=== PATIENT | male | born 1955 | race Caucasian/White ===

== ENCOUNTER 2020-01-20 09:41 | Inpatient (IN) | payer MEDICARE ==
[2020-01-20] MEDS ORDERED: Sodium Chloride 0.9% 1000 ML 1,000 ML ONE (10:09)
[2020-01-20] MEDS ORDERED: Sodium Chloride 0.9% 1000 ML 1,000 ML IV STA (10:36)
[2020-01-20] MEDS ORDERED: ROCEPHIN 1 Gm-D5w 50 ml Bag** 1 G/50 ML IVPB IV STA (10:36)
[2020-01-20] MEDS ORDERED: Zithromax 500 MG/ 250 ML NaCl Premix 500 MG/250 ML IVPB IV STA (10:36)
--- NOTE | 2020-01-20 10:36 | ERPHSYRPT ---
- History of Present Illness Time Seen by Provider: 01/20/20 09:51 Source: patient Exam Limitations: no limitations (3) Patient Subjective Stated Complaint: fever, chills, flu like sx Triage Nursing Assessment: Pt to ED by EMS c/o flu like sx, fever, chills, body aches, vomiting, confusion, RLQ pain as well as buring with urination and dysuria x 2 days. 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 pt A&Ox3 on arrival, no SOB noted. lung sounds clear and euqal bilaterally, heart sounds clear, bowel sounds active. tender to palp on RLQ. also c/o chornic groin pain 07/19 since 2003. Physician History: For the past 4 days pt has had dysuria; for the past 2 days generalized aches, chills, fever, shortness of air and RLQ abdominal pain; today vomiting x1 and decreased oxygen saturation of 91% on room air(per ems). LBM was today & wnl. Allergies/Adverse Reactions: codeine Allergy (Unknown, Verified 01/20/20 10:29) Home Medications: Albuterol Sulfate [Proair Hfa] 8.5 gm IH Q4-6HPRN PRN 01/20/20 [History] Hx Tetanus, Diphtheria Vaccination/Date Given: No Hx Influenza Vaccination/Date Given: Yes Hx Pneumococcal Vaccination/Date Given: Yes Travel Risk - International Travel Have you traveled outside of the country in past 3 weeks: No Have you or anyone close to you been diagnosed with or: No Do your reside in a community with a known COVID-19 case?: Yes If Yes where:: [place] - Coronavirus Screening Has patient experienced Coronavirus symptoms: Yes Symptoms experienced: fever(equal or > 100.4 F), respiratory symptoms ( i.e.Cought,shortness of breath), muscle pain Date of fever onset:: 01/20/20 - Review of Systems Constitutional: Fever, Chills, Other (generalized aches) Respiratory: Dyspnea Cardiac: No Chest Pain Abdominal/Gastrointestinal: Abdominal Pain, Vomiting, No Diarrhea Genitourinary Symptoms: Dysuria Neurological: No Headache All Other Systems: Reviewed and Negative - Past Medical History Pertinent Past Medical History: Yes Neurological History: No Pertinent History ENT History: No Pertinent History Cardiac History: No Pertinent History Respiratory History: Asthma, COPD Endocrine Medical History: No Pertinent History Musculoskeletal History: No Pertinent History GI Medical History: No Pertinent History History: Other Psycho-Social History: Depression Male Reproductive Disorders: No Pertinent History Other Medical History: freq UTI - Past Surgical History Past Surgical History: No - Social History Smoking Status: Current some day smoker Drug Use: none - Nursing Vital Signs Nursing Vital Signs: Initial Vital Signs Temperature 101.8 F 01/20/20 10:15 Pulse Rate 119 H 01/20/20 10:15 Respiratory Rate 22 01/20/20 10:15 Blood Pressure 143/72 01/20/20 10:15 O2 Sat by Pulse Oximetry 95 01/20/20 10:15 Pain Scale Pain Intensity 10 - Physical Exam General Appearance: alert Eye Exam: PERRL/EOMI ENT Exam: pharyngeal erythema Neck Exam: normal inspection Respiratory Exam: lungs clear Cardiovascular/Chest Exam: normal heart sounds Gastrointestinal/Abdominal Exam: soft, tenderness (mild diffuse abdominal tenderness.) Extremity Exam: No pedal edema Neurologic Exam: alert, cooperative Skin Exam: warm, dry SpO2 Interpretation: O2 applied SpO2: 95 O2 Delivery: Nasal Cannula (4 L/M) - Course Nursing assessment & vital signs reviewed: Yes EKG Interpreted by Me: RATE ([id number]), Sinus Tach, NORMAL AXIS, 1st degree AV Block - CT Exams Abdomen/Pelvis CT Interpretation: Tele-radiologist Report (cirrhosis. portal hypertension. splenomegaly. right nephrolithiasis. no upper urinary tract obstruction. bladder wall thickening. correlate with urinalysis regarding possible cystitis.) Chest CT Interpretation: Tele-radiologist Report (no central pulmonary embolism.) Ordered Tests: Active Orders 24 hr Category Date Time Status Final Inspector Motorcyles STAT Care 01/20/20 10:37 Active EKG-ER Only STAT Care 01/20/20 10:36 Active IV Insertion STAT Care 01/20/20 10:36 Active IV Insertion-2nd Peripheral STAT Care 01/20/20 11:37 Active Isolation, Initiate & Maintain Q12H Care 01/20/20 10:28 Active Oxygen-ED Only Nasal Cannula 4 lpm Care 01/20/20 10:36 Active ABDOMEN AND PELVIS W/0 CONTRAS [CT] Stat Exams 01/20/20 10:39 Taken CHEST WITH CONTRAST [CT] Stat Exams 01/20/20 10:58 Taken AMYLASE Stat Lab 01/20/20 10:30 Completed BLOOD CULTURE Stat Lab 01/20/20 10:30 Ordered CBC W DIFF Stat Lab 01/20/20 10:30 Completed CMP Stat Lab 01/20/20 10:30 Completed CULTURE,SPUTUM Stat Lab 01/20/20 13:59 Received CULTURE,URINE Stat Lab 01/20/20 11:45 Received D-DIMER QUANTITATIVE Stat Lab 01/20/20 10:30 Completed Erythrocyte Sedimentation Rate Stat Lab 01/20/20 10:30 Completed LIPASE Stat Lab 01/20/20 10:30 Completed Lactic Acid Stat Lab 01/20/20 10:36 Completed Lactic Acid Stat Lab 01/20/20 12:56 Completed MAGNESIUM Stat Lab 01/20/20 10:30 Completed Dickinson Screen Stat Lab 01/20/20 10:30 Completed NT PRO BNP Stat Lab 01/20/20 10:30 Completed TROPONIN Q3H Lab 01/20/20 10:30 Completed TROPONIN Q3H Lab 01/20/20 13:55 Completed TROPONIN Q3H Lab 01/20/20 16:45 Ordered TROPONIN Q3H Lab 01/20/20 19:45 Ordered TROPONIN Q3H Lab 01/20/20 22:45 Ordered UA W/RFX UR CULTURE Stat Lab 01/20/20 11:45 Completed Urine Triage Profile Stat Lab 01/20/20 11:45 Completed VENOUS BLOOD GAS Stat Lab 01/20/20 10:36 Completed Medication Summary Generic Name Dose Route Start Last Admin Trade Name Freq PRN Reason Stop Dose Admin Potassium Chloride/Sodium Chloride 1,000 mls @ 500 mls/hr 01/20/20 12:45 09/28 12:45 Sodium Chloride 0.9% W/ 20 Meq Kcl/Liter IV 02/19/20 12:44 500 mls/hr .Q2H SANKET Administration Magnesium Sulfate/Dextrose 100 mls @ 200 mls/hr 01/20/20 14:42 Magnesium 1 Gm / 100 Ml D5w IV 01/20/20 15:11 STAT ONE Discontinued Medications Generic Name Dose Route Start Last Admin Trade Name Freq PRN Reason Stop Dose Admin Acetaminophen 650 mg 01/20/20 12:56 01/20/20 13:31 Tylenol 325 Mg PO 01/20/20 12:57 650 mg STAT ONE Administration Acetaminophen Confirm 01/20/20 13:29 Tylenol 325 Mg Administered 01/20/20 13:30 Dose 650 mg .ROUTE .STK-MED ONE Sodium Chloride Confirm 01/20/20 10:09 Sodium Chloride 0.9% 1000 Ml Administered 01/20/20 10:10 Dose 1,000 mls @ ud .ROUTE .STK-MED ONE Ceftriaxone Sodium/Dextrose 1 g in 50 mls @ 100 mls/hr 01/20/20 10:36 13:31 Rocephin 1 Gm-D5w 50 Ml Bag IV 01/20/20 11:05 Infused STAT STA Infusion Sodium Chloride 1,000 mls @ 999 mls/hr 01/20/20 10:36 01/20/20 13:31 Sodium Chloride 0.9% 1000 Ml IV 01/20/20 11:36 Infused .Q1H1M STA Infusion Azithromycin 500 mg in 250 mls @ 250 mls/hr 01/20/20 10:36 01/20/20 13:31 Zithromax 500 Mg/ 250 Ml Nacl Premix IV 01/20/20 11:35 Infused STAT STA Infusion Azithromycin Confirm 01/20/20 10:46 Zithromax 500 Mg/ 250 Ml Nacl Premix Administered 01/20/20 10:47 Dose 500 mg in 250 mls @ ud IV .STK-MED ONE Ceftriaxone Sodium/Dextrose Confirm 01/20/20 10:46 Rocephin 1 Gm-D5w 50 Ml Bag Administered 01/20/20 10:47 Dose 1 g in 50 mls @ ud IV .STK-MED ONE Lab/Rad Data: Laboratory Result Diagrams 01/20/20 10:30 01/20/20 10:30 Laboratory Results 01/20/20 01/20/20 01/20/20 Range/Units 13:55 12:56 11:45 WBC (4.0-10.5) K/mm3 RBC (4.1-5.6) M/mm3 Hgb (12.5-18.0) gm/dl Hct (42-50) % MCV (78-100) fl MCH (26-32) pg MCHC (32-36) g/dl RDW (11.5-14.0) % Plt Count (150-450) K/mm3 MPV (7.5-11.0) fl Gran % (36.0-66.0) % Eos # (Auto) (0-0.5) Absolute Lymphs (auto) (1.0-4.6) Absolute Monos (auto) (0.0-1.3) Lymphocytes % (24.0-44.0) % Monocytes % (0.0-12.0) % Eosinophils % (0.00-5.0) % Basophils % (0.0-0.4) % Absolute Granulocytes (1.4-6.9) Basophils # (0-0.4) ESR (0-15) mm/hr D-Dimer (215-500) ng/mL pO2/FiO2 Ratio % VBG pH (7.32-7.42) VBG pCO2 at Pat Temp (42-55) mm/Hg VBG pO2 at Pat Temp (25-40) mm/Hg VBG HCO3 (22-28) meq/L VBG O2 Sat (Sp) (95-100) VBG Base Excess (-2.0-2.0) VBG Hemoglobin VBG Carboxyhemoglobin (0.0-6.9) % T HGB POC Potassium (3.5-5.1) Sodium (137-145) mmol/L Potassium (3.5-5.1) mmol/L Chloride (98-107) mmol/L Carbon Dioxide (22-30) mmol/L Anion Gap (5-15) MEQ/L BUN (9-20) mg/dL Creatinine (0.66-1.25) mg/dL Estimated GFR ML/MIN Glucose (74-106) mg/dL Lactic Acid 1.4 (0.4-2.0) Calcium (8.4-10.2) mg/dL Magnesium (1.6-2.3) mg/dL Total Bilirubin (0.2-1.3) mg/dL AST (17-59) U/L ALT (0-50) U/L Alkaline Phosphatase (38-126) U/L Troponin I 0.029 (0.000-0.034) ng/mL NT-Pro-B Natriuret Pep (0-900) pg/mL Serum Total Protein (6.3-8.2) g/dL Albumin (3.5-5.0) g/dL Amylase (30-110) U/L Lipase (23-300) U/L Urine Color (YELLOW) Urine Appearance (CLEAR) Urine pH (5-6) Ur Specific Nelson (1.005-1.025) Urine Protein (Negative) Urine Ketones (NEGATIVE) Urine Blood (0-5) Randy/ul Urine Nitrite (NEGATIVE) Urine Bilirubin (NEGATIVE) Urine Urobilinogen (0-1) mg/dL Ur Leukocyte Esterase (NEGATIVE) Urine WBC (Auto) (0-5) /HPF Urine RBC (Auto) (0-2) /HPF U Epithel Cells (Auto) (FEW) /HPF Urine Bacteria (Auto) (NEGATIVE) /HPF Unidentified Crystals (NEGATIVE) /HPF Urine Mucus (Auto) (NEGATIVE) /HPF Urine Culture Reflexed (NO) Urine Glucose (NEGATIVE) mg/dL Urine Opiates Level NEGATIVE (NEGATIVE) Ur Methadone NEGATIVE (NEGATIVE) Urine Barbiturates NEGATIVE (NEGATIVE) Ur Phencyclidine (PCP) NEGATIVE (NEGATIVE) Urine Amphetamine POSITIVE (NEGATIVE) U Benzodiazepine Level NEGATIVE (NEGATIVE) Urine Cocaine NEGATIVE (NEGATIVE) Urine Marijuana (THC) NEGATIVE (NEGATIVE) Monoscreen (Negative) Influenza Type A Ag (NEGATIVE) Influenza Type B Ag (NEGATIVE) RSV (PCR) (Negative) Group A Strep Antibody (NEGATIVE) Slides for Path Review 01/20/20 01/20/20 01/20/20 Range/Units 11:45 10:36 10:30 WBC (4.0-10.5) K/mm3 RBC (4.1-5.6) M/mm3 Hgb (12.5-18.0) gm/dl Hct (42-50) % MCV (78-100) fl MCH (26-32) pg MCHC (32-36) g/dl RDW (11.5-14.0) % Plt Count (150-450) K/mm3 MPV (7.5-11.0) fl Gran % (36.0-66.0) % Eos # (Auto) (0-0.5) Absolute Lymphs (auto) (1.0-4.6) Absolute Monos (auto) (0.0-1.3) Lymphocytes % (24.0-44.0) % Monocytes % (0.0-12.0) % Eosinophils % (0.00-5.0) % Basophils % (0.0-0.4) % Absolute Granulocytes (1.4-6.9) Basophils # (0-0.4) ESR (0-15) mm/hr D-Dimer (215-500) ng/mL pO2/FiO2 Ratio 28.0 % VBG pH 7.50 H (7.32-7.42) VBG pCO2 at Pat Temp 33 L (42-55) mm/Hg VBG pO2 at Pat Temp 106 H (25-40) mm/Hg VBG HCO3 25.7 (22-28) meq/L VBG O2 Sat (Sp) 98.7 (95-100) VBG Base Excess 2.9 H (-2.0-2.0) VBG Hemoglobin 15.4 VBG Carboxyhemoglobin 5.6 (0.0-6.9) % T HGB POC Potassium 3.3 L (3.5-5.1) Sodium (137-145) mmol/L Potassium (3.5-5.1) mmol/L Chloride (98-107) mmol/L Carbon Dioxide (22-30) mmol/L Anion Gap (5-15) MEQ/L BUN (9-20) mg/dL Creatinine (0.66-1.25) mg/dL Estimated GFR ML/MIN Glucose (74-106) mg/dL Lactic Acid 2.3 H (0.4-2.0) Calcium (8.4-10.2) mg/dL Magnesium (1.6-2.3) mg/dL Total Bilirubin (0.2-1.3) mg/dL AST (17-59) U/L ALT (0-50) U/L Alkaline Phosphatase (38-126) U/L Troponin I (0.000-0.034) ng/mL NT-Pro-B Natriuret Pep (0-900) pg/mL Serum Total Protein (6.3-8.2) g/dL Albumin (3.5-5.0) g/dL Amylase (30-110) U/L Lipase (23-300) U/L Urine Color YELLOW (YELLOW) Urine Appearance SLIGHTLY CLOUDY (CLEAR) Urine pH 8.0 (5-6) Ur Specific Nelson 1.011 (1.005-1.025) Urine Protein 30 (Negative) Urine Ketones NEGATIVE (NEGATIVE) Urine Blood SMALL (0-5) Randy/ul Urine Nitrite POSITIVE (NEGATIVE) Urine Bilirubin NEGATIVE (NEGATIVE) Urine Urobilinogen NEGATIVE (0-1) mg/dL Ur Leukocyte Esterase LARGE (NEGATIVE) Urine WBC (Auto) >100 (0-5) /HPF Urine RBC (Auto) 11-15 (0-2) /HPF U Epithel Cells (Auto) NONE (FEW) /HPF Urine Bacteria (Auto) FEW (NEGATIVE) /HPF Unidentified Crystals 2-5 (NEGATIVE) /HPF Urine Mucus (Auto) SLIGHT (NEGATIVE) /HPF Urine Culture Reflexed YES (NO) Urine Glucose 50 (NEGATIVE) mg/dL Urine Opiates Level (NEGATIVE) Ur Methadone (NEGATIVE) Urine Barbiturates (NEGATIVE) Ur Phencyclidine (PCP) (NEGATIVE) Urine Amphetamine (NEGATIVE) U Benzodiazepine Level (NEGATIVE) Urine Cocaine (NEGATIVE) Urine Marijuana (THC) (NEGATIVE) Monoscreen (Negative) Influenza Type A Ag NEGATIVE (NEGATIVE) Influenza Type B Ag NEGATIVE (NEGATIVE) RSV (PCR) NEGATIVE (Negative) Group A Strep Antibody NEGATIVE (NEGATIVE) Slides for Path Review 01/20/20 01/20/20 01/20/20 Range/Units 10:30 10:30 10:30 WBC (4.0-10.5) K/mm3 RBC (4.1-5.6) M/mm3 Hgb (12.5-18.0) gm/dl Hct (42-50) % MCV (78-100) fl MCH (26-32) pg MCHC (32-36) g/dl RDW (11.5-14.0) % Plt Count (150-450) K/mm3 MPV (7.5-11.0) fl Gran % (36.0-66.0) % Eos # (Auto) (0-0.5) Absolute Lymphs (auto) (1.0-4.6) Absolute Monos (auto) (0.0-1.3) Lymphocytes % (24.0-44.0) % Monocytes % (0.0-12.0) % Eosinophils % (0.00-5.0) % Basophils % (0.0-0.4) % Absolute Granulocytes (1.4-6.9) Basophils # (0-0.4) ESR 17 H (0-15) mm/hr D-Dimer (215-500) ng/mL pO2/FiO2 Ratio % VBG pH (7.32-7.42) VBG pCO2 at Pat Temp (42-55) mm/Hg VBG pO2 at Pat Temp (25-40) mm/Hg VBG HCO3 (22-28) meq/L VBG O2 Sat (Sp) (95-100) VBG Base Excess (-2.0-2.0) VBG Hemoglobin VBG Carboxyhemoglobin (0.0-6.9) % T HGB POC Potassium (3.5-5.1) Sodium (137-145) mmol/L Potassium (3.5-5.1) mmol/L Chloride (98-107) mmol/L Carbon Dioxide (22-30) mmol/L Anion Gap (5-15) MEQ/L BUN (9-20) mg/dL Creatinine (0.66-1.25) mg/dL Estimated GFR ML/MIN Glucose (74-106) mg/dL Lactic Acid (0.4-2.0) Calcium (8.4-10.2) mg/dL Magnesium (1.6-2.3) mg/dL Total Bilirubin (0.2-1.3) mg/dL AST (17-59) U/L ALT (0-50) U/L Alkaline Phosphatase (38-126) U/L Troponin I < 0.012 (0.000-0.034) ng/mL NT-Pro-B Natriuret Pep (0-900) pg/mL Serum Total Protein (6.3-8.2) g/dL Albumin (3.5-5.0) g/dL Amylase (30-110) U/L Lipase (23-300) U/L Urine Color (YELLOW) Urine Appearance (CLEAR) Urine pH (5-6) Ur Specific Nelson (1.005-1.025) Urine Protein (Negative) Urine Ketones (NEGATIVE) Urine Blood (0-5) Randy/ul Urine Nitrite (NEGATIVE) Urine Bilirubin (NEGATIVE) Urine Urobilinogen (0-1) mg/dL Ur Leukocyte Esterase (NEGATIVE) Urine WBC (Auto) (0-5) /HPF Urine RBC (Auto) (0-2) /HPF U Epithel Cells (Auto) (FEW) /HPF Urine Bacteria (Auto) (NEGATIVE) /HPF Unidentified Crystals (NEGATIVE) /HPF Urine Mucus (Auto) (NEGATIVE) /HPF Urine Culture Reflexed (NO) Urine Glucose (NEGATIVE) mg/dL Urine Opiates Level (NEGATIVE) Ur Methadone (NEGATIVE) Urine Barbiturates (NEGATIVE) Ur Phencyclidine (PCP) (NEGATIVE) Urine Amphetamine (NEGATIVE) U Benzodiazepine Level (NEGATIVE) Urine Cocaine (NEGATIVE) Urine Marijuana (THC) (NEGATIVE) Monoscreen POSITIVE (Negative) Influenza Type A Ag (NEGATIVE) Influenza Type B Ag (NEGATIVE) RSV (PCR) (Negative) Group A Strep Antibody (NEGATIVE) Slides for Path Review 01/20/20 01/20/20 01/20/20 Range/Units 10:30 10:30 10:30 WBC (4.0-10.5) K/mm3 RBC (4.1-5.6) M/mm3 Hgb (12.5-18.0) gm/dl Hct (42-50) % MCV (78-100) fl MCH (26-32) pg MCHC (32-36) g/dl RDW (11.5-14.0) % Plt Count (150-450) K/mm3 MPV (7.5-11.0) fl Gran % (36.0-66.0) % Eos # (Auto) (0-0.5) Absolute Lymphs (auto) (1.0-4.6) Absolute Monos (auto) (0.0-1.3) Lymphocytes % (24.0-44.0) % Monocytes % (0.0-12.0) % Eosinophils % (0.00-5.0) % Basophils % (0.0-0.4) % Absolute Granulocytes (1.4-6.9) Basophils # (0-0.4) ESR (0-15) mm/hr D-Dimer 3779 H* (215-500) ng/mL pO2/FiO2 Ratio % VBG pH (7.32-7.42) VBG pCO2 at Pat Temp (42-55) mm/Hg VBG pO2 at Pat Temp (25-40) mm/Hg VBG HCO3 (22-28) meq/L VBG O2 Sat (Sp) (95-100) VBG Base Excess (-2.0-2.0) VBG Hemoglobin VBG Carboxyhemoglobin (0.0-6.9) % T HGB POC Potassium (3.5-5.1) Sodium 142 (137-145) mmol/L Potassium 3.3 L (3.5-5.1) mmol/L Chloride 109 H (98-107) mmol/L Carbon Dioxide 25 (22-30) mmol/L Anion Gap 11.4 (5-15) MEQ/L BUN 14 (9-20) mg/dL Creatinine 0.81 (0.66-1.25) mg/dL Estimated GFR > 60.0 ML/MIN Glucose 147 H (74-106) mg/dL Lactic Acid (0.4-2.0) Calcium 9.4 (8.4-10.2) mg/dL Magnesium 1.4 L (1.6-2.3) mg/dL Total Bilirubin 1.20 (0.2-1.3) mg/dL AST 39 (17-59) U/L ALT 25 (0-50) U/L Alkaline Phosphatase 83 (38-126) U/L Troponin I (0.000-0.034) ng/mL NT-Pro-B Natriuret Pep 66.8 (0-900) pg/mL Serum Total Protein 7.7 (6.3-8.2) g/dL Albumin 3.9 (3.5-5.0) g/dL Amylase 73 (30-110) U/L Lipase 123 (23-300) U/L Urine Color (YELLOW) Urine Appearance (CLEAR) Urine pH (5-6) Ur Specific Nelson (1.005-1.025) Urine Protein (Negative) Urine Ketones (NEGATIVE) Urine Blood (0-5) Randy/ul Urine Nitrite (NEGATIVE) Urine Bilirubin (NEGATIVE) Urine Urobilinogen (0-1) mg/dL Ur Leukocyte Esterase (NEGATIVE) Urine WBC (Auto) (0-5) /HPF Urine RBC (Auto) (0-2) /HPF U Epithel Cells (Auto) (FEW) /HPF Urine Bacteria (Auto) (NEGATIVE) /HPF Unidentified Crystals (NEGATIVE) /HPF Urine Mucus (Auto) (NEGATIVE) /HPF Urine Culture Reflexed (NO) Urine Glucose (NEGATIVE) mg/dL Urine Opiates Level (NEGATIVE) Ur Methadone (NEGATIVE) Urine Barbiturates (NEGATIVE) Ur Phencyclidine (PCP) (NEGATIVE) Urine Amphetamine (NEGATIVE) U Benzodiazepine Level (NEGATIVE) Urine Cocaine (NEGATIVE) Urine Marijuana (THC) (NEGATIVE) Monoscreen (Negative) Influenza Type A Ag (NEGATIVE) Influenza Type B Ag (NEGATIVE) RSV (PCR) (Negative) Group A Strep Antibody (NEGATIVE) Slides for Path Review 01/20/20 Range/Units 10:30 WBC 3.6 L (4.0-10.5) K/mm3 RBC 4.91 (4.1-5.6) M/mm3 Hgb 14.8 (12.5-18.0) gm/dl Hct 43.5 (42-50) % MCV 88.6 (78-100) fl MCH 30.1 (26-32) pg MCHC 34.0 (32-36) g/dl RDW 14.6 H (11.5-14.0) % Plt Count 41 L (150-450) K/mm3 MPV 13.3 H (7.5-11.0) fl Gran % 91.8 H (36.0-66.0) % Eos # (Auto) 0.02 (0-0.5) Absolute Lymphs (auto) 0.12 L (1.0-4.6) Absolute Monos (auto) 0.14 (0.0-1.3) Lymphocytes % 3.4 L (24.0-44.0) % Monocytes % 3.9 (0.0-12.0) % Eosinophils % 0.6 (0.00-5.0) % Basophils % 0.3 (0.0-0.4) % Absolute Granulocytes 3.26 (1.4-6.9) Basophils # 0.01 (0-0.4) ESR (0-15) mm/hr D-Dimer (215-500) ng/mL pO2/FiO2 Ratio % VBG pH (7.32-7.42) VBG pCO2 at Pat Temp (42-55) mm/Hg VBG pO2 at Pat Temp (25-40) mm/Hg VBG HCO3 (22-28) meq/L VBG O2 Sat (Sp) (95-100) VBG Base Excess (-2.0-2.0) VBG Hemoglobin VBG Carboxyhemoglobin (0.0-6.9) % T HGB POC Potassium (3.5-5.1) Sodium (137-145) mmol/L Potassium (3.5-5.1) mmol/L Chloride (98-107) mmol/L Carbon Dioxide (22-30) mmol/L Anion Gap (5-15) MEQ/L BUN (9-20) mg/dL Creatinine (0.66-1.25) mg/dL Estimated GFR ML/MIN Glucose (74-106) mg/dL Lactic Acid (0.4-2.0) Calcium (8.4-10.2) mg/dL Magnesium (1.6-2.3) mg/dL Total Bilirubin (0.2-1.3) mg/dL AST (17-59) U/L ALT (0-50) U/L Alkaline Phosphatase (38-126) U/L Troponin I (0.000-0.034) ng/mL NT-Pro-B Natriuret Pep (0-900) pg/mL Serum Total Protein (6.3-8.2) g/dL Albumin (3.5-5.0) g/dL Amylase (30-110) U/L Lipase (23-300) U/L Urine Color (YELLOW) Urine Appearance (CLEAR) Urine pH (5-6) Ur Specific Nelson (1.005-1.025) Urine Protein (Negative) Urine Ketones (NEGATIVE) Urine Blood (0-5) Randy/ul Urine Nitrite (NEGATIVE) Urine Bilirubin (NEGATIVE) Urine Urobilinogen (0-1) mg/dL Ur Leukocyte Esterase (NEGATIVE) Urine WBC (Auto) (0-5) /HPF Urine RBC (Auto) (0-2) /HPF U Epithel Cells (Auto) (FEW) /HPF Urine Bacteria (Auto) (NEGATIVE) /HPF Unidentified Crystals (NEGATIVE) /HPF Urine Mucus (Auto) (NEGATIVE) /HPF Urine Culture Reflexed (NO) Urine Glucose (NEGATIVE) mg/dL Urine Opiates Level (NEGATIVE) Ur Methadone (NEGATIVE) Urine Barbiturates (NEGATIVE) Ur Phencyclidine (PCP) (NEGATIVE) Urine Amphetamine (NEGATIVE) U Benzodiazepine Level (NEGATIVE) Urine Cocaine (NEGATIVE) Urine Marijuana (THC) (NEGATIVE) Monoscreen (Negative) Influenza Type A Ag (NEGATIVE) Influenza Type B Ag (NEGATIVE) RSV (PCR) (Negative) Group A Strep Antibody (NEGATIVE) Slides for Path Review YES - Progress Progress: unchanged Discussed with Dr.: Louise (admit to negative pressure room: test for covid-19. ) Counseled pt/family regarding: lab results, rad results - Departure Departure Disposition: In-patient Admission Clinical Impression: Infectious mononucleosis, UDS + for amphetamine, UTI (urinary tract infection) , Hypokalemia, Hypomagnesemia, Dyspnea, Abdominal pain, Thrombocytopenia, Hypoxia, Cirrhosis, Asthma, COPD (chronic obstructive pulmonary disease), Depression, Tachycardia Condition: Stable Critical Care Time: Yes Critical Care Time(excluding separately billable procedures): Critical 30-74 mins Referrals: BHAVESH LONDON NP [Primary Care Provider] -
[2020-01-20] MEDS ORDERED: ROCEPHIN 1 Gm-D5w 50 ml Bag** 1 G/50 ML IVPB IV ONE (10:46)
[2020-01-20] MEDS ORDERED: Zithromax 500 MG/ 250 ML NaCl Premix 500 MG/250 ML IVPB IV ONE (10:46)
[2020-01-20 10:54] LABS: Absolute Neutrophil Ct (ANC) 3.26 (1.4-6.9); BASOPHIL % 0.3 % (0.0-0.4); Basophil (Absolute #) 0.01 (0-0.4); Eosinophil % 0.6 % (0.00-5.0); Eosinophil (Absolute #) 0.02 (0-0.5); Hematocrit 43.5 % (42-50); Hemoglobin 14.8 gm/dl (12.5-18.0); Lymphocyte (Absolute #) 0.12 (1.0-4.6); Lymphocytes % 3.4 % (24.0-44.0); Mean Cell Volume 88.6 fl (78-100); Mean Corpuscular Hemoglobin 30.1 pg (26-32); Mean Platelet Volume 13.3 fl (7.5-11.0); Monocyte (Absolute #) 0.14 (0.0-1.3); Monocytes % 3.9 % (0.0-12.0); Neutrophil % 91.8 % (36.0-66.0); Platelet Count 41 K/mm3 (150-450); Red Blood Count 4.91 M/mm3 (4.1-5.6); Red Cell Distribution Width 14.6 % (11.5-14.0); White Blood Count 3.6 K/mm3 (4.0-10.5)
[2020-01-20 10:56] LABS: Lactic Acid 2.3 (0.4-2.0); VBG BASE EXCESS 2.9 (-2.0-2.0); VBG CARBOXYHEMOGLOBIN 5.6 % T HGB (0.0-6.9); VBG HCO3- 25.7 meq/L (22-28); VBG HEMOGLOBIN 15.4; VBG O2 SATURATION 98.7 (95-100); VBG POTASSIUM 3.3 (3.5-5.1); VBG pH 7.5 (7.32-7.42)
[2020-01-20 10:59] LABS: AMYLASE 73 U/L (30-110); LIPASE 123 U/L (23-300)
[2020-01-20 11:07] LABS: ALBUMIN 3.9 g/dL (3.5-5.0); ALKALINE PHOSPHATASE 83 U/L (38-126); ANION GAP 11.4 MEQ/L (5-15); BLOOD UREA NITROGEN 14 mg/dL (9-20); CHLORIDE 109 mmol/L (98-107); Calcium 9.4 mg/dL (8.4-10.2); Carbon Dioxide 25 mmol/L (22-30); Creatinine 1 0.81 mg/dL (0.66-1.25); Glucose 147 mg/dL (74-106); INFLUENZA A NEGATIVE (NEGATIVE); INFLUENZA B NEGATIVE (NEGATIVE); MAGNESIUM 1.4 mg/dL (1.6-2.3); NT PRO BNP 66.8 pg/mL (0-900); Potassium 3.3 mmol/L (3.5-5.1); RESPIRATORY SYNCTIAL VIRUS NEGATIVE (Negative); SGOT/AST 39 U/L (17-59); SGPT/ALT 25 U/L (0-50); SODIUM 142 mmol/L (137-145); Total Protein 7.7 g/dL (6.3-8.2)
[2020-01-20 11:15] LABS: Slide Review 1 YES
[2020-01-20 12:03] LABS: Appearance SLIGHTLY CLOUDY (CLEAR); Bacteria FEW /HPF (NEGATIVE); Bilirubin NEGATIVE (NEGATIVE); Blood SMALL Ery/ul (0-5); Glucose 50 mg/dL (NEGATIVE); Ketones NEGATIVE (NEGATIVE); Leukocyte Esterase LARGE (NEGATIVE); Mucus SLIGHT /HPF (NEGATIVE); Nitrite POSITIVE (NEGATIVE); Protein,Urine Dip 30 (Negative); Specific Gravity 1.011 (1.005-1.025); Urobilinogen NEGATIVE mg/dL (0-1); WBC >100 /HPF (0-5)
[2020-01-20 12:10] LABS: Amphetamine,Urine POSITIVE (NEGATIVE); Barbiturate,Urine NEGATIVE (NEGATIVE); Benzodiazepine,Urine NEGATIVE (NEGATIVE); Cocaine,Urine NEGATIVE (NEGATIVE); Methadone,Urine NEGATIVE (NEGATIVE); Opiate,Urine NEGATIVE (NEGATIVE); PCP,Urine NEGATIVE (NEGATIVE); THC,Urine NEGATIVE (NEGATIVE)
[2020-01-20] MEDS ORDERED: Sodium Chloride 0.9% W/ 20 mEq KCl/LITER 1,000 ML IV SCH (12:45)
[2020-01-20] MEDS ORDERED: TYLENOL 325 MG PO ONE (12:56)
[2020-01-20] MEDS ORDERED: TYLENOL 325 MG ONE (13:29)
[2020-01-20] MEDS ORDERED: Magnesium 1 Gm / 100 Ml D5W*** 100 ML IV ONE ×2 (14:42→14:59)
[2020-01-20] MEDS ORDERED: Zofran 4 MG/2 ML VIAL IV PRN (15:28)
[2020-01-20] MEDS: Sodium Chloride 0.9% 1000 ML 1,000 ML IV SCH (16:45)
[2020-01-20] MEDS ORDERED: VENTOLIN COMMON CANISTER IH PRN ×2 (16:45→17:13)
[2020-01-20] MEDS ORDERED: VENTOLIN COMMON CANISTER IH SCH (19:00)
--- NOTE | 2020-01-20 20:14 | XRAY ---
Indication: Elevated d-dimer. Abdomen pain. Multiple contiguous axial images obtained through the chest using 80 cc Isovue 370 contrast and PE protocol. Comparison: None. Pulmonary embolus evaluation limited due to suboptimal opacification of the pulmonary arteries and diffuse respiration artifact. No large central pulmonary embolus. Heart is not enlarged. Aorta is normal in course and caliber with minimal calcifications. No aortic aneurysm/dissection. No pathologic mediastinal/hilar lymphadenopathy. Large distal paraesophageal varices. Examination of the lung parenchyma demonstrates bilateral dependent atelectasis and bibasilar atelectasis/scarring. No obvious pulmonary mass, infiltrate, or effusion. Bony thorax now demonstrates osteopenia and bilateral shoulder arthroplasty. CT abdomen/pelvis reported separately. Impression: 1. Pulmonary embolus evaluation limited due to suboptimal opacification and respiration artifact. No large central pulmonary embolus. 2. Distal paraesophageal varices. 3. No gross acute cardiopulmonary abnormalities. Comment: Preliminary interpretation was made by C. No critical discrepancy.
--- NOTE | 2020-01-20 20:17 | XRAY ---
Indication: Abdomen pain. Multiple contiguous axial images obtained through the abdomen and pelvis without contrast as ordered. Comparison: None. CT chest reported separately. Several images degraded by respiration artifact. Noncontrasted stomach and bowel loops appear nonobstructed. Normal appendix. There is mild diffuse scattered colonic fecal debris throughout. Cirrhotic appearing liver with 14.5 cm splenomegaly and splenorenal varices related to portal hypertension. No free fluid/air. Nonobstructing right renal punctate calculus. Jenkins catheter balloon tip in the partially decompressed urinary bladder lumen. Remaining gallbladder, pancreas, adrenal glands, kidneys, and ureters appear unremarkable for noncontrast exam. Mild/moderate scattered aortoiliac calcifications without AAA. Osseous structures intact. Small fatty left inguinal hernia. Impression: 1. Respiration artifact. 2. Cirrhosis, splenomegaly, and splenorenal varices favoring portal hypertension. 3. Diffuse fecal stasis without obstruction. 4. Nonobstructing right renal micro-calculus and 4 catheter in situ Comment: Preliminary interpretation was made by [facility]. No critical discrepancy.
[2020-01-20] MEDS: LYRICA 75 MG CAP PO SCH (20:57)
[2020-01-20] MEDS: DESYREL 50 MG PO SCH (20:57)
[2020-01-20] MEDS: TYLENOL 325 MG PO PRN (20:58)
[2020-01-20] MEDS: Neurontin 400 MG PO SCH (20:58)
[2020-01-20] MEDS: NORCO 5/325 MG PO PRN (20:58)
[2020-01-20] MEDS: Risperdal 1 MG PO SCH (20:58)
[2020-01-20] MEDS: Colace 100 MG PO PRN (20:59)
[2020-01-20] MEDS: HUMALOG SQ PRN (21:00)
[2020-01-20] MEDS: VENTOLIN COMMON CANISTER IH SCH (21:47)
[2020-01-21] MEDS: TYLENOL 325 MG PO PRN ×2 (00:12→06:12)
[2020-01-21] MEDS: Sodium Chloride 0.9% 1000 ML 1,000 ML IV SCH (02:20)
[2020-01-21 06:57] LABS: BASOPHIL % 0.3 % (0.0-0.4); Basophil (Absolute #) 0.01 (0-0.4); Eosinophil (Absolute #) 0 (0-0.5); Hematocrit 38.5 % (42-50); Hemoglobin 12.7 gm/dl (12.5-18.0); Lymphocyte (Absolute #) 0.26 (1.0-4.6); Lymphocytes % 7.8 % (24.0-44.0); Mean Cell Volume 91.4 fl (78-100); Mean Corpuscular Hemoglobin 30.2 pg (26-32); Mean Platelet Volume 12.1 fl (7.5-11.0); Monocyte (Absolute #) 0.27 (0.0-1.3); Monocytes % 8.1 % (0.0-12.0); Neutrophil % 83.8 % (36.0-66.0); Platelet Count 35 K/mm3 (150-450); Red Blood Count 4.21 M/mm3 (4.1-5.6); Red Cell Distribution Width 14.9 % (11.5-14.0); White Blood Count 3.3 K/mm3 (4.0-10.5)
[2020-01-21 07:13] LABS: ALBUMIN 2.9 g/dL (3.5-5.0); ALKALINE PHOSPHATASE 60 U/L (38-126); BLOOD UREA NITROGEN 16 mg/dL (9-20); CHLORIDE 111 mmol/L (98-107); Calcium 7.9 mg/dL (8.4-10.2); Carbon Dioxide 24 mmol/L (22-30); Creatinine 1 0.92 mg/dL (0.66-1.25); Glucose 144 mg/dL (74-106); MAGNESIUM 1.6 mg/dL (1.6-2.3); Potassium 3.8 mmol/L (3.5-5.1); SGOT/AST 47 U/L (17-59); SGPT/ALT 27 U/L (0-50); SODIUM 139 mmol/L (137-145); Total Protein 6.4 g/dL (6.3-8.2)
[2020-01-21] MEDS ORDERED: HOLD METFORMIN PRODUCTS FOR 48 HOURS MC SCH (07:45)
--- NOTE | 2020-01-21 08:24 | PCM.HP ---
History of Present Illness - Chief Complaint Chief Complaint: hypoxia; dyspnea; tachycardia; uti; infectious mononucleosis. History of Present Illness: is a 64 year old male who called EMS yesterday with complaints of fever, chills, low abdominal pain, vomiting and confusion. He was febrile and found to have a UTI, he was recently hospitalized at [facility] for the same. He reports a history of cirrhosis, he is a smoker and has an albuterol inhaler prescribed but denies known copd. he recently moved to the area from [place], he is a very poor historian. - Review of Systems Constitutional: Fever, Chills Respiratory: Cough Cardiac: No Chest Pain, No Edema, No Syncope Abdominal/Gastrointestinal: Abdominal Pain, Nausea Genitourinary Symptoms: Dysuria, Frequency Skin: No Rash All Other Systems: Reviewed and Negative Medications & Allergies Home Medications: Home Medication List Albuterol Sulfate [Proair Hfa] 8.5 gm IH Q4-6HPRN PRN 01/20/20 [History Confirmed 01/20/20] Buspirone HCl 5 mg [Buspar 5 mg] 10 mg PO DAILY 01/20/20 [History Confirmed 01/20/20] Gabapentin [Neurontin] 800 mg PO TID 01/20/20 [History Confirmed 01/20/20] Metformin HCl 500 mg [Glucophage 500 MG] 500 mg PO BIDWM 01/20/20 [ History Confirmed 01/20/20] Metoprolol Succinate 50 mg [Toprol Xl 50 MG] 50 mg PO DAILY 01/20/20 [ History Confirmed 01/20/20] Pregabalin [Lyrica 75 mg Cap] 75 mg PO BID 01/20/20 [History Confirmed ] Trazodone HCl 50 mg [Desyrel 50 mg] 100 mg PO QHS 01/20/20 [History Confirmed 01/20/20] buPROPion HCL [Bupropion HCl Sr] 150 mg PO DAILY 01/20/20 [History Confirmed 09/28] risperiDONE [Risperidone] 1 mg PO QHS 01/20/20 [History Confirmed 01/20/20] Allergies/Adverse Reactions: Allergies Allergy/AdvReac Type Severity Reaction Status Date / Time codeine Allergy Unknown Verified 01/20/20 10:29 - Past Medical History Past Medical History: Yes Neurological History: No Pertinent History ENT History: No Pertinent History Cardiac History: No Pertinent History Respiratory History: Asthma, COPD Endocrine Medical History: No Pertinent History Musculoskelatal History: No Pertinent History GI Medical History: No Pertinent History History: Other Pyscho-Social History: Depression Male Reproductive Disorders: No Pertinent History Comment: freq UTI, back pain, R knee "stiff, nerves" - Past Surgical History Past Surgical History: No Musculskeletal Surgical Hx: Orthopedic Surgery Other Surgical History: R knee - Social History Smoking Status: Current every day smoker How long have you smoked: 50 yrs Alcohol: None Drug Use: none - Physical Exam Vital Signs: Vital Signs - 24 hr Temp Pulse Resp BP Pulse Ox 01/21/20 05:14 110/60 01/21/20 04:00 99.6 F 80 16 80/54 99 01/21/20 02:20 99.2 F 74/40 01/21/20 00:00 101.9 F 88 17 82/50 96 01/20/20 20:45 87 18 95 01/20/20 19:43 99.1 F 70 18 116/64 94 L 01/20/20 17:52 99.8 F 93 H 20 101/64 94 L 01/20/20 16:45 93 H 20 94 L 01/20/20 16:00 99.8 F 86 16 101/64 92 L 01/20/20 15:35 99.8 F 86 16 92 L 01/20/20 15:22 95 01/20/20 13:55 104 H 24 127/83 96 01/20/20 13:25 101.8 F 108 H 23 127/83 95 01/20/20 12:09 110 H 24 118/73 97 01/20/20 11:40 110 H 26 H 135/83 100 01/20/20 10:50 113 H 24 133/77 96 01/20/20 10:15 101.8 F 119 H 22 143/72 95 General Appearance: no apparent distress Neurologic Exam: alert, cooperative Respiratory Exam: normal breath sounds, lungs clear, No respiratory distress Cardiovascular Exam: regular rate/rhythm, normal heart sounds, normal peripheral pulses Gastrointestinal/Abdomen Exam: soft, normal bowel sounds, No tenderness, No mass Extremity Exam: normal inspection, normal range of motion, pelvis stable Skin Exam: normal color, warm, dry, No rash Results - Labs Lab/Micro Results: Accuchecks Accucheck Value: 137 Accucheck Value: 182 Accucheck Value: 238 Lab Results-Last 24 Hours 01/20/20 01/20/20 01/20/20 Range/Units 10:30 10:30 10:30 WBC 3.6 L (4.0-10.5) K/mm3 RBC 4.91 (4.1-5.6) M/mm3 Hgb 14.8 (12.5-18.0) gm/dl Hct 43.5 (42-50) % MCV 88.6 (78-100) fl MCH 30.1 (26-32) pg MCHC 34.0 (32-36) g/dl RDW 14.6 H (11.5-14.0) % Plt Count 41 L (150-450) K/mm3 MPV 13.3 H (7.5-11.0) fl Gran % 91.8 H (36.0-66.0) % Eos # (Auto) 0.02 (0-0.5) Absolute Lymphs (auto) 0.12 L (1.0-4.6) Absolute Monos (auto) 0.14 (0.0-1.3) Lymphocytes % 3.4 L (24.0-44.0) % Monocytes % 3.9 (0.0-12.0) % Eosinophils % 0.6 (0.00-5.0) % Basophils % 0.3 (0.0-0.4) % Absolute Granulocytes 3.26 (1.4-6.9) Basophils # 0.01 (0-0.4) ESR (0-15) mm/hr D-Dimer 3779 H* (215-500) ng/mL pO2/FiO2 Ratio % VBG pH (7.32-7.42) VBG pCO2 at Pat Temp (42-55) mm/Hg VBG pO2 at Pat Temp (25-40) mm/Hg VBG HCO3 (22-28) meq/L VBG O2 Sat (Sp) (95-100) VBG Base Excess (-2.0-2.0) VBG Hemoglobin VBG Carboxyhemoglobin (0.0-6.9) % T HGB POC Potassium (3.5-5.1) Sodium 142 (137-145) mmol/L Potassium 3.3 L (3.5-5.1) mmol/L Chloride 109 H (98-107) mmol/L Carbon Dioxide 25 (22-30) mmol/L Anion Gap 11.4 (5-15) MEQ/L BUN 14 (9-20) mg/dL Creatinine 0.81 (0.66-1.25) mg/dL Estimated GFR > 60.0 ML/MIN Glucose 147 H (74-106) mg/dL Lactic Acid (0.4-2.0) Calcium 9.4 (8.4-10.2) mg/dL Magnesium 1.4 L (1.6-2.3) mg/dL Total Bilirubin 1.20 (0.2-1.3) mg/dL AST 39 (17-59) U/L ALT 25 (0-50) U/L Alkaline Phosphatase 83 (38-126) U/L Troponin I (0.000-0.034) ng/mL NT-Pro-B Natriuret Pep 66.8 (0-900) pg/mL Serum Total Protein 7.7 (6.3-8.2) g/dL Albumin 3.9 (3.5-5.0) g/dL Amylase (30-110) U/L Lipase (23-300) U/L Urine Color (YELLOW) Urine Appearance (CLEAR) Urine pH (5-6) Ur Specific [place] (1.005-1.025) Urine Protein (Negative) Urine Ketones (NEGATIVE) Urine Blood (0-5) Randy/ul Urine Nitrite (NEGATIVE) Urine Bilirubin (NEGATIVE) Urine Urobilinogen (0-1) mg/dL Ur Leukocyte Esterase (NEGATIVE) Urine WBC (Auto) (0-5) /HPF Urine RBC (Auto) (0-2) /HPF U Epithel Cells (Auto) (FEW) /HPF Urine Bacteria (Auto) (NEGATIVE) /HPF Unidentified Crystals (NEGATIVE) /HPF Urine Mucus (Auto) (NEGATIVE) /HPF Urine Culture Reflexed (NO) Urine Glucose (NEGATIVE) mg/dL Urine Opiates Level (NEGATIVE) Ur Methadone (NEGATIVE) Urine Barbiturates (NEGATIVE) Ur Phencyclidine (PCP) (NEGATIVE) Urine Amphetamine (NEGATIVE) U Benzodiazepine Level (NEGATIVE) Urine Cocaine (NEGATIVE) Urine Marijuana (THC) (NEGATIVE) Monoscreen (Negative) Influenza Type A Ag (NEGATIVE) Influenza Type B Ag (NEGATIVE) RSV (PCR) (Negative) Group A Strep Antibody (NEGATIVE) Slides for Path Review YES 01/20/20 01/20/20 01/20/20 Range/Units 10:30 10:30 10:30 WBC (4.0-10.5) K/mm3 RBC (4.1-5.6) M/mm3 Hgb (12.5-18.0) gm/dl Hct (42-50) % MCV (78-100) fl MCH (26-32) pg MCHC (32-36) g/dl RDW (11.5-14.0) % Plt Count (150-450) K/mm3 MPV (7.5-11.0) fl Gran % (36.0-66.0) % Eos # (Auto) (0-0.5) Absolute Lymphs (auto) (1.0-4.6) Absolute Monos (auto) (0.0-1.3) Lymphocytes % (24.0-44.0) % Monocytes % (0.0-12.0) % Eosinophils % (0.00-5.0) % Basophils % (0.0-0.4) % Absolute Granulocytes (1.4-6.9) Basophils # (0-0.4) ESR 17 H (0-15) mm/hr D-Dimer (215-500) ng/mL pO2/FiO2 Ratio % VBG pH (7.32-7.42) VBG pCO2 at Pat Temp (42-55) mm/Hg VBG pO2 at Pat Temp (25-40) mm/Hg VBG HCO3 (22-28) meq/L VBG O2 Sat (Sp) (95-100) VBG Base Excess (-2.0-2.0) VBG Hemoglobin VBG Carboxyhemoglobin (0.0-6.9) % T HGB POC Potassium (3.5-5.1) Sodium (137-145) mmol/L Potassium (3.5-5.1) mmol/L Chloride (98-107) mmol/L Carbon Dioxide (22-30) mmol/L Anion Gap (5-15) MEQ/L BUN (9-20) mg/dL Creatinine (0.66-1.25) mg/dL Estimated GFR ML/MIN Glucose (74-106) mg/dL Lactic Acid (0.4-2.0) Calcium (8.4-10.2) mg/dL Magnesium (1.6-2.3) mg/dL Total Bilirubin (0.2-1.3) mg/dL AST (17-59) U/L ALT (0-50) U/L Alkaline Phosphatase (38-126) U/L Troponin I < 0.012 (0.000-0.034) ng/mL NT-Pro-B Natriuret Pep (0-900) pg/mL Serum Total Protein (6.3-8.2) g/dL Albumin (3.5-5.0) g/dL Amylase 73 (30-110) U/L Lipase 123 (23-300) U/L Urine Color (YELLOW) Urine Appearance (CLEAR) Urine pH (5-6) Ur Specific [place] (1.005-1.025) Urine Protein (Negative) Urine Ketones (NEGATIVE) Urine Blood (0-5) Randy/ul Urine Nitrite (NEGATIVE) Urine Bilirubin (NEGATIVE) Urine Urobilinogen (0-1) mg/dL Ur Leukocyte Esterase (NEGATIVE) Urine WBC (Auto) (0-5) /HPF Urine RBC (Auto) (0-2) /HPF U Epithel Cells (Auto) (FEW) /HPF Urine Bacteria (Auto) (NEGATIVE) /HPF Unidentified Crystals (NEGATIVE) /HPF Urine Mucus (Auto) (NEGATIVE) /HPF Urine Culture Reflexed (NO) Urine Glucose (NEGATIVE) mg/dL Urine Opiates Level (NEGATIVE) Ur Methadone (NEGATIVE) Urine Barbiturates (NEGATIVE) Ur Phencyclidine (PCP) (NEGATIVE) Urine Amphetamine (NEGATIVE) U Benzodiazepine Level (NEGATIVE) Urine Cocaine (NEGATIVE) Urine Marijuana (THC) (NEGATIVE) Monoscreen (Negative) Influenza Type A Ag (NEGATIVE) Influenza Type B Ag (NEGATIVE) RSV (PCR) (Negative) Group A Strep Antibody (NEGATIVE) Slides for Path Review 01/20/20 01/20/20 01/20/20 Range/Units 10:30 10:30 10:36 WBC (4.0-10.5) K/mm3 RBC (4.1-5.6) M/mm3 Hgb (12.5-18.0) gm/dl Hct (42-50) % MCV (78-100) fl MCH (26-32) pg MCHC (32-36) g/dl RDW (11.5-14.0) % Plt Count (150-450) K/mm3 MPV (7.5-11.0) fl Gran % (36.0-66.0) % Eos # (Auto) (0-0.5) Absolute Lymphs (auto) (1.0-4.6) Absolute Monos (auto) (0.0-1.3) Lymphocytes % (24.0-44.0) % Monocytes % (0.0-12.0) % Eosinophils % (0.00-5.0) % Basophils % (0.0-0.4) % Absolute Granulocytes (1.4-6.9) Basophils # (0-0.4) ESR (0-15) mm/hr D-Dimer (215-500) ng/mL pO2/FiO2 Ratio 28.0 % VBG pH 7.50 H (7.32-7.42) VBG pCO2 at Pat Temp 33 L (42-55) mm/Hg VBG pO2 at Pat Temp 106 H (25-40) mm/Hg VBG HCO3 25.7 (22-28) meq/L VBG O2 Sat (Sp) 98.7 (95-100) VBG Base Excess 2.9 H (-2.0-2.0) VBG Hemoglobin 15.4 VBG Carboxyhemoglobin 5.6 (0.0-6.9) % T HGB POC Potassium 3.3 L (3.5-5.1) Sodium (137-145) mmol/L Potassium (3.5-5.1) mmol/L Chloride (98-107) mmol/L Carbon Dioxide (22-30) mmol/L Anion Gap (5-15) MEQ/L BUN (9-20) mg/dL Creatinine (0.66-1.25) mg/dL Estimated GFR ML/MIN Glucose (74-106) mg/dL Lactic Acid 2.3 H (0.4-2.0) Calcium (8.4-10.2) mg/dL Magnesium (1.6-2.3) mg/dL Total Bilirubin (0.2-1.3) mg/dL AST (17-59) U/L ALT (0-50) U/L Alkaline Phosphatase (38-126) U/L Troponin I (0.000-0.034) ng/mL NT-Pro-B Natriuret Pep (0-900) pg/mL Serum Total Protein (6.3-8.2) g/dL Albumin (3.5-5.0) g/dL Amylase (30-110) U/L Lipase (23-300) U/L Urine Color (YELLOW) Urine Appearance (CLEAR) Urine pH (5-6) Ur Specific [place] (1.005-1.025) Urine Protein (Negative) Urine Ketones (NEGATIVE) Urine Blood (0-5) Randy/ul Urine Nitrite (NEGATIVE) Urine Bilirubin (NEGATIVE) Urine Urobilinogen (0-1) mg/dL Ur Leukocyte Esterase (NEGATIVE) Urine WBC (Auto) (0-5) /HPF Urine RBC (Auto) (0-2) /HPF U Epithel Cells (Auto) (FEW) /HPF Urine Bacteria (Auto) (NEGATIVE) /HPF Unidentified Crystals (NEGATIVE) /HPF Urine Mucus (Auto) (NEGATIVE) /HPF Urine Culture Reflexed (NO) Urine Glucose (NEGATIVE) mg/dL Urine Opiates Level (NEGATIVE) Ur Methadone (NEGATIVE) Urine Barbiturates (NEGATIVE) Ur Phencyclidine (PCP) (NEGATIVE) Urine Amphetamine (NEGATIVE) U Benzodiazepine Level (NEGATIVE) Urine Cocaine (NEGATIVE) Urine Marijuana (THC) (NEGATIVE) Monoscreen POSITIVE (Negative) Influenza Type A Ag NEGATIVE (NEGATIVE) Influenza Type B Ag NEGATIVE (NEGATIVE) RSV (PCR) NEGATIVE (Negative) Group A Strep Antibody NEGATIVE (NEGATIVE) Slides for Path Review 01/20/20 01/20/20 01/20/20 Range/Units 11:45 11:45 12:56 WBC (4.0-10.5) K/mm3 RBC (4.1-5.6) M/mm3 Hgb (12.5-18.0) gm/dl Hct (42-50) % MCV (78-100) fl MCH (26-32) pg MCHC (32-36) g/dl RDW (11.5-14.0) % Plt Count (150-450) K/mm3 MPV (7.5-11.0) fl Gran % (36.0-66.0) % Eos # (Auto) (0-0.5) Absolute Lymphs (auto) (1.0-4.6) Absolute Monos (auto) (0.0-1.3) Lymphocytes % (24.0-44.0) % Monocytes % (0.0-12.0) % Eosinophils % (0.00-5.0) % Basophils % (0.0-0.4) % Absolute Granulocytes (1.4-6.9) Basophils # (0-0.4) ESR (0-15) mm/hr D-Dimer (215-500) ng/mL pO2/FiO2 Ratio % VBG pH (7.32-7.42) VBG pCO2 at Pat Temp (42-55) mm/Hg VBG pO2 at Pat Temp (25-40) mm/Hg VBG HCO3 (22-28) meq/L VBG O2 Sat (Sp) (95-100) VBG Base Excess (-2.0-2.0) VBG Hemoglobin VBG Carboxyhemoglobin (0.0-6.9) % T HGB POC Potassium (3.5-5.1) Sodium (137-145) mmol/L Potassium (3.5-5.1) mmol/L Chloride (98-107) mmol/L Carbon Dioxide (22-30) mmol/L Anion Gap (5-15) MEQ/L BUN (9-20) mg/dL Creatinine (0.66-1.25) mg/dL Estimated GFR ML/MIN Glucose (74-106) mg/dL Lactic Acid 1.4 (0.4-2.0) Calcium (8.4-10.2) mg/dL Magnesium (1.6-2.3) mg/dL Total Bilirubin (0.2-1.3) mg/dL AST (17-59) U/L ALT (0-50) U/L Alkaline Phosphatase (38-126) U/L Troponin I (0.000-0.034) ng/mL NT-Pro-B Natriuret Pep (0-900) pg/mL Serum Total Protein (6.3-8.2) g/dL Albumin (3.5-5.0) g/dL Amylase (30-110) U/L Lipase (23-300) U/L Urine Color YELLOW (YELLOW) Urine Appearance SLIGHTLY CLOUDY (CLEAR) Urine pH 8.0 (5-6) Ur Specific [place] 1.011 (1.005-1.025) Urine Protein 30 (Negative) Urine Ketones NEGATIVE (NEGATIVE) Urine Blood SMALL (0-5) Randy/ul Urine Nitrite POSITIVE (NEGATIVE) Urine Bilirubin NEGATIVE (NEGATIVE) Urine Urobilinogen NEGATIVE (0-1) mg/dL Ur Leukocyte Esterase LARGE (NEGATIVE) Urine WBC (Auto) >100 (0-5) /HPF Urine RBC (Auto) 11-15 (0-2) /HPF U Epithel Cells (Auto) NONE (FEW) /HPF Urine Bacteria (Auto) FEW (NEGATIVE) /HPF Unidentified Crystals 2-5 (NEGATIVE) /HPF Urine Mucus (Auto) SLIGHT (NEGATIVE) /HPF Urine Culture Reflexed YES (NO) Urine Glucose 50 (NEGATIVE) mg/dL Urine Opiates Level NEGATIVE (NEGATIVE) Ur Methadone NEGATIVE (NEGATIVE) Urine Barbiturates NEGATIVE (NEGATIVE) Ur Phencyclidine (PCP) NEGATIVE (NEGATIVE) Urine Amphetamine POSITIVE (NEGATIVE) U Benzodiazepine Level NEGATIVE (NEGATIVE) Urine Cocaine NEGATIVE (NEGATIVE) Urine Marijuana (THC) NEGATIVE (NEGATIVE) Monoscreen (Negative) Influenza Type A Ag (NEGATIVE) Influenza Type B Ag (NEGATIVE) RSV (PCR) (Negative) Group A Strep Antibody (NEGATIVE) Slides for Path Review 01/20/20 01/20/20 01/20/20 Range/Units 13:55 17:25 20:10 WBC (4.0-10.5) K/mm3 RBC (4.1-5.6) M/mm3 Hgb (12.5-18.0) gm/dl Hct (42-50) % MCV (78-100) fl MCH (26-32) pg MCHC (32-36) g/dl RDW (11.5-14.0) % Plt Count (150-450) K/mm3 MPV (7.5-11.0) fl Gran % (36.0-66.0) % Eos # (Auto) (0-0.5) Absolute Lymphs (auto) (1.0-4.6) Absolute Monos (auto) (0.0-1.3) Lymphocytes % (24.0-44.0) % Monocytes % (0.0-12.0) % Eosinophils % (0.00-5.0) % Basophils % (0.0-0.4) % Absolute Granulocytes (1.4-6.9) Basophils # (0-0.4) ESR (0-15) mm/hr D-Dimer (215-500) ng/mL pO2/FiO2 Ratio % VBG pH (7.32-7.42) VBG pCO2 at Pat Temp (42-55) mm/Hg VBG pO2 at Pat Temp (25-40) mm/Hg VBG HCO3 (22-28) meq/L VBG O2 Sat (Sp) (95-100) VBG Base Excess (-2.0-2.0) VBG Hemoglobin VBG Carboxyhemoglobin (0.0-6.9) % T HGB POC Potassium (3.5-5.1) Sodium (137-145) mmol/L Potassium (3.5-5.1) mmol/L Chloride (98-107) mmol/L Carbon Dioxide (22-30) mmol/L Anion Gap (5-15) MEQ/L BUN (9-20) mg/dL Creatinine (0.66-1.25) mg/dL Estimated GFR ML/MIN Glucose (74-106) mg/dL Lactic Acid (0.4-2.0) Calcium (8.4-10.2) mg/dL Magnesium (1.6-2.3) mg/dL Total Bilirubin (0.2-1.3) mg/dL AST (17-59) U/L ALT (0-50) U/L Alkaline Phosphatase (38-126) U/L Troponin I 0.029 0.024 0.014 (0.000-0.034) ng/mL NT-Pro-B Natriuret Pep (0-900) pg/mL Serum Total Protein (6.3-8.2) g/dL Albumin (3.5-5.0) g/dL Amylase (30-110) U/L Lipase (23-300) U/L Urine Color (YELLOW) Urine Appearance (CLEAR) Urine pH (5-6) Ur Specific [place] (1.005-1.025) Urine Protein (Negative) Urine Ketones (NEGATIVE) Urine Blood (0-5) Randy/ul Urine Nitrite (NEGATIVE) Urine Bilirubin (NEGATIVE) Urine Urobilinogen (0-1) mg/dL Ur Leukocyte Esterase (NEGATIVE) Urine WBC (Auto) (0-5) /HPF Urine RBC (Auto) (0-2) /HPF U Epithel Cells (Auto) (FEW) /HPF Urine Bacteria (Auto) (NEGATIVE) /HPF Unidentified Crystals (NEGATIVE) /HPF Urine Mucus (Auto) (NEGATIVE) /HPF Urine Culture Reflexed (NO) Urine Glucose (NEGATIVE) mg/dL Urine Opiates Level (NEGATIVE) Ur Methadone (NEGATIVE) Urine Barbiturates (NEGATIVE) Ur Phencyclidine (PCP) (NEGATIVE) Urine Amphetamine (NEGATIVE) U Benzodiazepine Level (NEGATIVE) Urine Cocaine (NEGATIVE) Urine Marijuana (THC) (NEGATIVE) Monoscreen (Negative) Influenza Type A Ag (NEGATIVE) Influenza Type B Ag (NEGATIVE) RSV (PCR) (Negative) Group A Strep Antibody (NEGATIVE) Slides for Path Review 01/20/20 01/21/20 01/21/20 Range/Units 22:45 05:05 05:05 WBC 3.3 L (4.0-10.5) K/mm3 RBC 4.21 (4.1-5.6) M/mm3 Hgb 12.7 (12.5-18.0) gm/dl Hct 38.5 L (42-50) % MCV 91.4 (78-100) fl MCH 30.2 (26-32) pg MCHC 33.0 (32-36) g/dl RDW 14.9 H (11.5-14.0) % Plt Count 35 L (150-450) K/mm3 MPV 12.1 H (7.5-11.0) fl Gran % 83.8 H (36.0-66.0) % Eos # (Auto) 0 (0-0.5) Absolute Lymphs (auto) 0.26 L (1.0-4.6) Absolute Monos (auto) 0.27 (0.0-1.3) Lymphocytes % 7.8 L (24.0-44.0) % Monocytes % 8.1 (0.0-12.0) % Eosinophils % 0.0 (0.00-5.0) % Basophils % 0.3 (0.0-0.4) % Absolute Granulocytes 2.80 (1.4-6.9) Basophils # 0.01 (0-0.4) ESR (0-15) mm/hr D-Dimer (215-500) ng/mL pO2/FiO2 Ratio % VBG pH (7.32-7.42) VBG pCO2 at Pat Temp (42-55) mm/Hg VBG pO2 at Pat Temp (25-40) mm/Hg VBG HCO3 (22-28) meq/L VBG O2 Sat (Sp) (95-100) VBG Base Excess (-2.0-2.0) VBG Hemoglobin VBG Carboxyhemoglobin (0.0-6.9) % T HGB POC Potassium (3.5-5.1) Sodium 139 (137-145) mmol/L Potassium 3.8 (3.5-5.1) mmol/L Chloride 111 H (98-107) mmol/L Carbon Dioxide 24 (22-30) mmol/L Anion Gap 8.0 (5-15) MEQ/L BUN 16 (9-20) mg/dL Creatinine 0.92 (0.66-1.25) mg/dL Estimated GFR > 60.0 ML/MIN Glucose 144 H (74-106) mg/dL Lactic Acid (0.4-2.0) Calcium 7.9 L D (8.4-10.2) mg/dL Magnesium 1.6 (1.6-2.3) mg/dL Total Bilirubin 1.30 (0.2-1.3) mg/dL AST 47 (17-59) U/L ALT 27 (0-50) U/L Alkaline Phosphatase 60 (38-126) U/L Troponin I 0.012 (0.000-0.034) ng/mL NT-Pro-B Natriuret Pep (0-900) pg/mL Serum Total Protein 6.4 (6.3-8.2) g/dL Albumin 2.9 L (3.5-5.0) g/dL Amylase (30-110) U/L Lipase (23-300) U/L Urine Color (YELLOW) Urine Appearance (CLEAR) Urine pH (5-6) Ur Specific [place] (1.005-1.025) Urine Protein (Negative) Urine Ketones (NEGATIVE) Urine Blood (0-5) Randy/ul Urine Nitrite (NEGATIVE) Urine Bilirubin (NEGATIVE) Urine Urobilinogen (0-1) mg/dL Ur Leukocyte Esterase (NEGATIVE) Urine WBC (Auto) (0-5) /HPF Urine RBC (Auto) (0-2) /HPF U Epithel Cells (Auto) (FEW) /HPF Urine Bacteria (Auto) (NEGATIVE) /HPF Unidentified Crystals (NEGATIVE) /HPF Urine Mucus (Auto) (NEGATIVE) /HPF Urine Culture Reflexed (NO) Urine Glucose (NEGATIVE) mg/dL Urine Opiates Level (NEGATIVE) Ur Methadone (NEGATIVE) Urine Barbiturates (NEGATIVE) Ur Phencyclidine (PCP) (NEGATIVE) Urine Amphetamine (NEGATIVE) U Benzodiazepine Level (NEGATIVE) Urine Cocaine (NEGATIVE) Urine Marijuana (THC) (NEGATIVE) Monoscreen (Negative) Influenza Type A Ag (NEGATIVE) Influenza Type B Ag (NEGATIVE) RSV (PCR) (Negative) Group A Strep Antibody (NEGATIVE) Slides for Path Review 01/21/20 Range/Units 05:19 WBC (4.0-10.5) K/mm3 RBC (4.1-5.6) M/mm3 Hgb (12.5-18.0) gm/dl Hct (42-50) % MCV (78-100) fl MCH (26-32) pg MCHC (32-36) g/dl RDW (11.5-14.0) % Plt Count (150-450) K/mm3 MPV (7.5-11.0) fl Gran % (36.0-66.0) % Eos # (Auto) (0-0.5) Absolute Lymphs (auto) (1.0-4.6) Absolute Monos (auto) (0.0-1.3) Lymphocytes % (24.0-44.0) % Monocytes % (0.0-12.0) % Eosinophils % (0.00-5.0) % Basophils % (0.0-0.4) % Absolute Granulocytes (1.4-6.9) Basophils # (0-0.4) ESR (0-15) mm/hr D-Dimer (215-500) ng/mL pO2/FiO2 Ratio % VBG pH (7.32-7.42) VBG pCO2 at Pat Temp (42-55) mm/Hg VBG pO2 at Pat Temp (25-40) mm/Hg VBG HCO3 (22-28) meq/L VBG O2 Sat (Sp) (95-100) VBG Base Excess (-2.0-2.0) VBG Hemoglobin VBG Carboxyhemoglobin (0.0-6.9) % T HGB POC Potassium (3.5-5.1) Sodium (137-145) mmol/L Potassium (3.5-5.1) mmol/L Chloride (98-107) mmol/L Carbon Dioxide (22-30) mmol/L Anion Gap (5-15) MEQ/L BUN (9-20) mg/dL Creatinine (0.66-1.25) mg/dL Estimated GFR ML/MIN Glucose (74-106) mg/dL Lactic Acid 1.1 (0.4-2.0) Calcium (8.4-10.2) mg/dL Magnesium (1.6-2.3) mg/dL Total Bilirubin (0.2-1.3) mg/dL AST (17-59) U/L ALT (0-50) U/L Alkaline Phosphatase (38-126) U/L Troponin I (0.000-0.034) ng/mL NT-Pro-B Natriuret Pep (0-900) pg/mL Serum Total Protein (6.3-8.2) g/dL Albumin (3.5-5.0) g/dL Amylase (30-110) U/L Lipase (23-300) U/L Urine Color (YELLOW) Urine Appearance (CLEAR) Urine pH (5-6) Ur Specific [place] (1.005-1.025) Urine Protein (Negative) Urine Ketones (NEGATIVE) Urine Blood (0-5) Randy/ul Urine Nitrite (NEGATIVE) Urine Bilirubin (NEGATIVE) Urine Urobilinogen (0-1) mg/dL Ur Leukocyte Esterase (NEGATIVE) Urine WBC (Auto) (0-5) /HPF Urine RBC (Auto) (0-2) /HPF U Epithel Cells (Auto) (FEW) /HPF Urine Bacteria (Auto) (NEGATIVE) /HPF Unidentified Crystals (NEGATIVE) /HPF Urine Mucus (Auto) (NEGATIVE) /HPF Urine Culture Reflexed (NO) Urine Glucose (NEGATIVE) mg/dL Urine Opiates Level (NEGATIVE) Ur Methadone (NEGATIVE) Urine Barbiturates (NEGATIVE) Ur Phencyclidine (PCP) (NEGATIVE) Urine Amphetamine (NEGATIVE) U Benzodiazepine Level (NEGATIVE) Urine Cocaine (NEGATIVE) Urine Marijuana (THC) (NEGATIVE) Monoscreen (Negative) Influenza Type A Ag (NEGATIVE) Influenza Type B Ag (NEGATIVE) RSV (PCR) (Negative) Group A Strep Antibody (NEGATIVE) Slides for Path Review Microbiology 01/20/20 11:45 Urine Culture - Preliminary Clean Catch Midstream GRAM POSITIVE ID AND SENSITIVITY PENDING Accuchecks Accucheck Value: 137 Accucheck Value: 182 Accucheck Value: 238 - Radiology Impressions Radiology Exams & Impressions: Radiology Procedures Category Date Time Status ABDOMEN AND PELVIS W/0 CONTRAS [CT] Stat Exams 01/20/20 10:39 Completed CHEST 1 VIEW (PORTABLE) Routine Exams 01/21/20 08:19 Ordered CHEST WITH CONTRAST [CT] Stat Exams 01/20/20 10:58 Completed - Other Procedures and Tests Respiratory Therapy 01/20/20 15:28 Oxygen Nasal Cannula 4 lpm 01/20/20 16:30 Respiratory Therapy Assessment DAILY 01/20/20 18:40 Smoking Cessation Education ONCE Assessment/Plan (1) UTI (urinary tract infection) Current Visit: Yes Status: Acute Assessment & Plan: on rocephin, culture pending. Code(s): N39.0 - URINARY TRACT INFECTION, SITE NOT SPECIFIED (2) Hypoxia Current Visit: Yes Status: Acute Assessment & Plan: nothing acute on cta yesterday, now requiring 4L oxygen via nasal cannula. covid swab pending, continue emperic antibiotics Code(s): R09.02 - HYPOXEMIA (3) COPD (chronic obstructive pulmonary disease) Current Visit: Yes Status: Acute (4) Cirrhosis Current Visit: Yes Status: Acute
[2020-01-21 09:13] LABS: Slide Review 1 YES
[2020-01-21] MEDS: ROCEPHIN 1 Gm-D5w 50 ml Bag** 1 G/50 ML IVPB IV SCH (09:15)
[2020-01-21] MEDS: LYRICA 75 MG CAP PO SCH ×2 (09:16→20:36)
[2020-01-21] MEDS: Neurontin 400 MG PO SCH ×3 (09:16→20:36)
[2020-01-21] MEDS: Zithromax 500 MG/ 250 ML NaCl Premix 500 MG/250 ML IVPB IV SCH (09:16)
--- NOTE | 2020-01-21 09:31 | XRAY ---
Indication: Hypoxia. Comparison: None. There is CT chest 1 day earlier. Portable chest demonstrates mild bibasilar atelectasis/scarring. Remaining heart and upper lungs unremarkable. Bony thorax intact.
[2020-01-21] MEDS: Colace 100 MG PO PRN (10:15)
[2020-01-21] MEDS: VENTOLIN COMMON CANISTER IH SCH ×2 (10:48→20:03)
[2020-01-21] MEDS: Wellbutrin SR 150 MG PO SCH (11:57)
[2020-01-21] MEDS: Toprol Xl 50 MG PO SCH (11:57)
[2020-01-21] MEDS: BUSPAR 5 MG PO SCH (11:57)
[2020-01-21] MEDS: HUMALOG SQ PRN ×3 (12:07→20:37)
[2020-01-21] MEDS: NORCO 5/325 MG PO PRN ×2 (14:15→20:37)
[2020-01-21] MEDS: Risperdal 1 MG PO SCH (20:36)
[2020-01-21] MEDS: DESYREL 50 MG PO SCH (20:37)
[2020-01-21] MEDS: Sodium Chloride 0.9% 10 ML FLUSH Syringe IV SCH (20:37)
[2020-01-22 05:07] LABS: Absolute Neutrophil Ct (ANC) 2.16 (1.4-6.9); BASOPHIL % 0.3 % (0.0-0.4); Basophil (Absolute #) 0.01 (0-0.4); Eosinophil % 1.6 % (0.00-5.0); Eosinophil (Absolute #) 0.05 (0-0.5); Hematocrit 37.3 % (42-50); Hemoglobin 12.2 gm/dl (12.5-18.0); Lymphocyte (Absolute #) 0.59 (1.0-4.6); Lymphocytes % 18.9 % (24.0-44.0); Mean Corpuscular Hemoglobin 29.8 pg (26-32); Mean Corpuscular Hgb Concent. 32.7 g/dl (32-36); Mean Platelet Volume 12.5 fl (7.5-11.0); Monocyte (Absolute #) 0.31 (0.0-1.3); Monocytes % 9.9 % (0.0-12.0); Neutrophil % 69.3 % (36.0-66.0); Platelet Count 31 K/mm3 (150-450); Red Cell Distribution Width 14.4 % (11.5-14.0); White Blood Count 3.1 K/mm3 (4.0-10.5)
[2020-01-22 05:18] LABS: ALBUMIN 2.8 g/dL (3.5-5.0); ALKALINE PHOSPHATASE 64 U/L (38-126); ANION GAP 8.3 MEQ/L (5-15); BLOOD UREA NITROGEN 17 mg/dL (9-20); CHLORIDE 107 mmol/L (98-107); Calcium 7.9 mg/dL (8.4-10.2); Carbon Dioxide 24 mmol/L (22-30); Creatinine 1 0.76 mg/dL (0.66-1.25); Glucose 131 mg/dL (74-106); MAGNESIUM 1.7 mg/dL (1.6-2.3); Potassium 3.7 mmol/L (3.5-5.1); SGOT/AST 51 U/L (17-59); SGPT/ALT 27 U/L (0-50); SODIUM 135 mmol/L (137-145); Total Protein 6.3 g/dL (6.3-8.2)
[2020-01-22] MEDS: Sodium Chloride 0.9% 10 ML FLUSH Syringe IV SCH ×3 (05:24→22:09)
[2020-01-22 07:55] LABS: Slide Review 1 YES
[2020-01-22] MEDS: VENTOLIN COMMON CANISTER IH SCH ×2 (08:00→19:55)
[2020-01-22] MEDS: Zithromax 500 MG/ 250 ML NaCl Premix 500 MG/250 ML IVPB IV SCH (09:34)
[2020-01-22] MEDS: Wellbutrin SR 150 MG PO SCH (09:35)
[2020-01-22] MEDS: LYRICA 75 MG CAP PO SCH ×2 (09:35→22:08)
[2020-01-22] MEDS: ROCEPHIN 1 Gm-D5w 50 ml Bag** 1 G/50 ML IVPB IV SCH (09:35)
[2020-01-22] MEDS: BUSPAR 5 MG PO SCH (09:35)
[2020-01-22] MEDS: Neurontin 400 MG PO SCH ×3 (09:35→22:08)
[2020-01-22] MEDS: Toprol Xl 50 MG PO SCH (09:36)
--- NOTE | 2020-01-22 09:46 | PCM.NOTE ---
Date and Time: 01/22/20 0945 Subjective Assessment: patient reports low abdominal pain has improved some, he complains of low back and left sciatica pain from lying in bed. he is tolerating po, no blood in the stool or vomitus etc Objective Exam General Appearance: no apparent distress, alert Skin Exam: normal color, warm, dry Respiratory Exam: normal breath sounds, lungs clear, No respiratory distress Cardiovascular Exam: regular rate/rhythm, normal heart sounds Gastrointestinal/Abdomen Exam: soft, No tenderness, No mass OBJECTIVE DATA Vital Signs: Vital Signs - 24 hr Temp Pulse Resp BP Pulse Ox 01/22/20 08:00 76 16 94 L 01/22/20 07:31 98.1 F 62 18 124/67 97 01/22/20 04:00 99.1 F 61 13 122/69 96 01/22/20 00:00 98.3 F 67 14 110/60 95 01/21/20 20:03 71 16 94 L 01/21/20 20:00 100.0 F 73 14 110/65 93 L 01/21/20 16:00 98.3 F 74 18 108/68 92 L 01/21/20 12:00 98.1 F 85 18 105/65 96 01/21/20 11:26 94 L 01/21/20 10:42 92 H 18 95 Pain Assessment - Last Documented Pain Intensity 4 Pain Scale Used [facility] Intake and Output: Intake & Output 01/19/20 01/20/20 01/21/20 01/22/20 11:59 11:59 11:59 11:59 Intake Total 3031 2342 Output Total 1300 1300 Balance 1731 1042 Weight 81.1 kg 93 kg 93.1 kg Lab Results: Accuchecks Date 01/21/20 Date 01/21/20 Date 01/21/20 Time 20:30 Time 16:30 Time 11:30 Accucheck Value: 211 Accucheck Value: 173 Lab Results-Last 24 Hours 01/22/20 01/22/20 Range/Units 04:45 04:45 WBC 3.1 L (4.0-10.5) K/mm3 RBC 4.10 (4.1-5.6) M/mm3 Hgb 12.2 L (12.5-18.0) gm/dl Hct 37.3 L (42-50) % MCV 91.0 (78-100) fl MCH 29.8 (26-32) pg MCHC 32.7 (32-36) g/dl RDW 14.4 H (11.5-14.0) % Plt Count 31 L (150-450) K/mm3 MPV 12.5 H (7.5-11.0) fl Gran % 69.3 H (36.0-66.0) % Eos # (Auto) 0.05 (0-0.5) Absolute Lymphs (auto) 0.59 L (1.0-4.6) Absolute Monos (auto) 0.31 (0.0-1.3) Lymphocytes % 18.9 L (24.0-44.0) % Monocytes % 9.9 (0.0-12.0) % Eosinophils % 1.6 (0.00-5.0) % Basophils % 0.3 (0.0-0.4) % Absolute Granulocytes 2.16 (1.4-6.9) Basophils # 0.01 (0-0.4) Sodium 135 L (137-145) mmol/L Potassium 3.7 (3.5-5.1) mmol/L Chloride 107 (98-107) mmol/L Carbon Dioxide 24 (22-30) mmol/L Anion Gap 8.3 (5-15) MEQ/L BUN 17 (9-20) mg/dL Creatinine 0.76 (0.66-1.25) mg/dL Estimated GFR > 60.0 ML/MIN Glucose 131 H (74-106) mg/dL Calcium 7.9 L (8.4-10.2) mg/dL Magnesium 1.7 (1.6-2.3) mg/dL Total Bilirubin 0.80 (0.2-1.3) mg/dL AST 51 (17-59) U/L ALT 27 (0-50) U/L Alkaline Phosphatase 64 (38-126) U/L Serum Total Protein 6.3 (6.3-8.2) g/dL Albumin 2.8 L (3.5-5.0) g/dL Slides for Path Review YES Radiology Exams: Radiology Procedures Category Date Time Status ABDOMEN AND PELVIS W/0 CONTRAS [CT] Stat Exams 01/20/20 10:39 Completed CHEST 1 VIEW (PORTABLE) Routine Exams 01/21/20 08:19 Completed CHEST WITH CONTRAST [CT] Stat Exams 01/20/20 10:58 Completed Assessment/Plan (1) UTI (urinary tract infection) Current Visit: Yes Status: Acute Assessment & Plan: MRSA on culture, change to vanc Code(s): N39.0 - URINARY TRACT INFECTION, SITE NOT SPECIFIED (2) Hypoxia Current Visit: Yes Status: Acute Assessment & Plan: weaned to 2L oxygen, covid swab pending. Code(s): R09.02 - HYPOXEMIA (3) COPD (chronic obstructive pulmonary disease) Current Visit: Yes Status: Acute (4) Cirrhosis Current Visit: Yes Status: Acute
[2020-01-22] MEDS ORDERED: BUPROPION HCL 150 MG PO SCH (10:00)
[2020-01-22] MEDS: VANCOMYCIN 1.5 GRAM/300 ML BAG 1.5 GM/300 ML PIGGYBACK IV SCH ×2 (10:04→22:08)
[2020-01-22] MEDS: HUMALOG SQ PRN ×3 (12:15→22:10)
[2020-01-22] MEDS: NORCO 5/325 MG PO PRN (19:37)
[2020-01-22] MEDS: DESYREL 50 MG PO SCH (22:08)
[2020-01-22] MEDS: Risperdal 1 MG PO SCH (22:08)
[2020-01-23] MEDS: Sodium Chloride 0.9% 10 ML FLUSH Syringe IV SCH (04:16)
[2020-01-23 04:40] LABS: Absolute Neutrophil Ct (ANC) 1.33 (1.4-6.9); BASOPHIL % 0.5 % (0.0-0.4); Basophil (Absolute #) 0.01 (0-0.4); Eosinophil % 1.8 % (0.00-5.0); Eosinophil (Absolute #) 0.04 (0-0.5); Hematocrit 37.1 % (42-50); Hemoglobin 12.5 gm/dl (12.5-18.0); Lymphocyte (Absolute #) 0.63 (1.0-4.6); Lymphocytes % 28.4 % (24.0-44.0); Mean Cell Volume 89.6 fl (78-100); Mean Corpuscular Hemoglobin 30.2 pg (26-32); Mean Corpuscular Hgb Concent. 33.7 g/dl (32-36); Monocyte (Absolute #) 0.21 (0.0-1.3); Monocytes % 9.5 % (0.0-12.0); Neutrophil % 59.8 % (36.0-66.0); Platelet Count 43 K/mm3 (150-450); Red Blood Count 4.14 M/mm3 (4.1-5.6); Red Cell Distribution Width 14.5 % (11.5-14.0); White Blood Count 2.2 K/mm3 (4.0-10.5)
[2020-01-23 04:52] LABS: ALBUMIN 2.9 g/dL (3.5-5.0); ALKALINE PHOSPHATASE 77 U/L (38-126); ANION GAP 8.8 MEQ/L (5-15); BLOOD UREA NITROGEN 15 mg/dL (9-20); CHLORIDE 109 mmol/L (98-107); Calcium 8.3 mg/dL (8.4-10.2); Carbon Dioxide 25 mmol/L (22-30); Creatinine 1 0.71 mg/dL (0.66-1.25); Glucose 197 mg/dL (74-106); MAGNESIUM 1.6 mg/dL (1.6-2.3); Potassium 3.7 mmol/L (3.5-5.1); SGOT/AST 39 U/L (17-59); SGPT/ALT 24 U/L (0-50); SODIUM 139 mmol/L (137-145); Total Protein 6.4 g/dL (6.3-8.2)
[2020-01-23] MEDS: VENTOLIN COMMON CANISTER IH SCH (06:56)
[2020-01-23 07:27] LABS: Slide Review 1 YES
[2020-01-23] MEDS: HUMALOG SQ PRN (08:25)
[2020-01-23] MEDS: NORCO 5/325 MG PO PRN (08:34)
[2020-01-23 09:03] VITALS: BP 129/80; PULSE 54; O2SAT 95
[2020-01-23] MEDS: Wellbutrin SR 150 MG PO SCH (09:51)
[2020-01-23] MEDS: BUSPAR 5 MG PO SCH (09:53)
[2020-01-23] MEDS: Neurontin 400 MG PO SCH (09:53)
[2020-01-23] MEDS: Toprol Xl 50 MG PO SCH (09:53)
[2020-01-23] MEDS: VANCOMYCIN 1.5 GRAM/300 ML BAG 1.5 GM/300 ML PIGGYBACK IV SCH (09:56)
[2020-01-23] MEDS: LYRICA 75 MG CAP PO SCH (09:57)
--- NOTE | 2020-01-23 10:00 | PCM.DS ---
Discharge Summary Date of Admission: 01/20/20 15:35 Admitting Physician: MELIDA GODINEZ Primary Care Provider: BHAVESH LONDON Allergies Allergies codeine Allergy (Unknown, Verified 01/20/20 10:29) Hospital Summary - Hospital Course Hospital Course: patient was admitted with fever, chills, low abdominal pain and vomiting. treated for UTI, culture +MRSA. covid-19 swab was negative. he is tolerating po , has chronic pain in his back which is severe, he is waiting to see Dr Camacho. - Vitals & Intake/Output Vital Signs: Vital Signs Temperature 98.2 F 01/23/20 08:00 Pulse Rate 54 L 01/23/20 08:00 Respiratory Rate 17 01/23/20 08:00 Blood Pressure 129/80 01/23/20 08:00 O2 Sat by Pulse Oximetry 95 01/23/20 08:00 Intake & Output: Intake & Output 01/20/20 01/21/20 01/22/20 01/23/20 11:59 11:59 11:59 11:59 Intake Total 3031 2582 2380 Output Total 1300 1300 4200 Balance 1731 1282 -1820 Weight 81.1 kg 93 kg 93.1 kg 91.3 kg - Lab Result Diagrams: 01/23/20 04:35 01/23/20 04:35 Lab Results-Last 24 Hrs: Accuchecks Accucheck Value: 180 Accucheck Value: 372 Accucheck Value: 231 Lab Results-Last 24 Hours 01/20/20 01/23/20 01/23/20 Range/Units 17:25 04:35 04:35 WBC 2.2 L (4.0-10.5) K/mm3 RBC 4.14 (4.1-5.6) M/mm3 Hgb 12.5 (12.5-18.0) gm/dl Hct 37.1 L (42-50) % MCV 89.6 (78-100) fl MCH 30.2 (26-32) pg MCHC 33.7 (32-36) g/dl RDW 14.5 H (11.5-14.0) % Plt Count 43 L D (150-450) K/mm3 MPV 13.0 H (7.5-11.0) fl Gran % 59.8 (36.0-66.0) % Eos # (Auto) 0.04 (0-0.5) Absolute Lymphs (auto) 0.63 L (1.0-4.6) Absolute Monos (auto) 0.21 (0.0-1.3) Lymphocytes % 28.4 (24.0-44.0) % Monocytes % 9.5 (0.0-12.0) % Eosinophils % 1.8 (0.00-5.0) % Basophils % 0.5 (0.0-0.4) % Absolute Granulocytes 1.33 L (1.4-6.9) Basophils # 0.01 (0-0.4) Sodium 139 (137-145) mmol/L Potassium 3.7 (3.5-5.1) mmol/L Chloride 109 H (98-107) mmol/L Carbon Dioxide 25 (22-30) mmol/L Anion Gap 8.8 (5-15) MEQ/L BUN 15 (9-20) mg/dL Creatinine 0.71 (0.66-1.25) mg/dL Estimated GFR > 60.0 ML/MIN Glucose 197 H (74-106) mg/dL Calcium 8.3 L (8.4-10.2) mg/dL Magnesium 1.6 (1.6-2.3) mg/dL Total Bilirubin 0.70 (0.2-1.3) mg/dL AST 39 (17-59) U/L ALT 24 (0-50) U/L Alkaline Phosphatase 77 (38-126) U/L Serum Total Protein 6.4 (6.3-8.2) g/dL Albumin 2.9 L (3.5-5.0) g/dL COVID-19 (MARTHA) SEE SEPARATE REPORT Slides for Path Review YES Micro Results-Entire Visit: Microbiology 01/20/20 13:59 Gram Stain - Final Sputum - Expectorant Sputum Culture - Final ORGANISMS ISOLATED ARE CONSISTENT WITH NORMAL RESP BRAYDON LIGHT GROWTH, NO PREDOMINANT ORGANISM 01/20/20 11:45 Blood Culture - Preliminary Blood NO GROWTH TO DATE 01/20/20 10:30 Blood Culture - Preliminary Blood NO GROWTH TO DATE 01/20/20 11:45 Urine Culture - Final Clean Catch Midstream Methicillin Resist Staph Aur Accuchecks Accucheck Value: 180 Accucheck Value: 372 Accucheck Value: 231 - Procedures and Test Procedures and Tests throughout Hospitalization: Therapy Orders & Screens 01/20/20 15:28 Oxygen Nasal Cannula 4 lpm Comment: Respiratory Therapy Consult ROUTINE Comment: Reason For Exam: 01/20/20 16:30 Respiratory Therapy Assessment DAILY Comment: Diagnosis: hypoxia; dyspnea; tachycardia; uti; infectious mononucleosis. 01/20/20 18:40 RT Screen per Nursing Assess ONCE Comment: Protocol Order Physician Instructions: Greater than 3 points order RT Admission Screen Reason For Exam: Triggered on Admission Diagnosis: hypoxia; dyspnea; tachycardia; uti; infectious mononucleosis. Diagnosis: hypoxia; dyspnea; tachycardia; uti; infectious mononucleosis. Pneumonia: No Home O2: No Asthma: Yes CHF: No Home CPAP/BIPAP: No Home Nebs/MDI: Yes Total Points: 9 Smoking Cessation Education ONCE Comment: Diagnosis: hypoxia; dyspnea; tachycardia; uti; infectious mononucleosis. Smoking Status: Current every day smoker How long have you smoked: 50 yrs Approximately how many cigarettes per day: 5 Discharge Exam General Appearance: no apparent distress, alert Neurologic Exam: alert, oriented x 3, cooperative, normal mood/affect, nml cerebellar function, sensation nml, No motor deficits Respiratory Exam: normal breath sounds, lungs clear, No respiratory distress Cardiovascular Exam: regular rate/rhythm, normal heart sounds Gastrointestinal/Abdomen Exam: soft, No tenderness, No mass Extremity Exam: normal inspection, normal range of motion Skin Exam: normal color, warm, dry Final Diagnosis/Problem List - Final Discharge Diagnosis/Problem (1) UTI (urinary tract infection) Current Visit: Yes Status: Acute Assessment & Plan: home on po bactrim based on culture Code(s): N39.0 - URINARY TRACT INFECTION, SITE NOT SPECIFIED (2) Hypoxia Current Visit: Yes Status: Acute Code(s): R09.02 - HYPOXEMIA (3) COPD (chronic obstructive pulmonary disease) Current Visit: Yes Status: Acute (4) Cirrhosis Current Visit: Yes Status: Acute (5) Chronic low back pain Current Visit: Yes Status: Acute Code(s): M54.5 - LOW BACK PAIN; G89.29 - OTHER CHRONIC PAIN - Discharge Disposition: Home, Self-Care Condition: Stable Prescriptions: New Sulfamethoxazole/Trimethoprim [Bactrim Ds Tablet] 1 each PO BID #14 tablet Hydrocodone/APAP 5-325 Tab^^^ [[place] 5-325 Tablet^^^] 1 tab PO Q6HPRN PRN # 20 tablet MDD 6 PRN Reason: Pain Continue Albuterol Sulfate [Proair Hfa] 8.5 gm IH Q4-6HPRN PRN PRN Reason: Shortness Of Breath risperiDONE [Risperidone] 1 mg PO QHS buPROPion HCL [Bupropion HCl Sr] 150 mg PO DAILY Pregabalin [Lyrica 75 mg Cap] 75 mg PO BID Trazodone HCl 50 mg [Desyrel 50 mg] 100 mg PO QHS Buspirone HCl 5 mg [Buspar 5 mg] 10 mg PO DAILY Metoprolol Succinate 50 mg [Toprol Xl 50 MG] 50 mg PO DAILY Metformin HCl 500 mg [Glucophage 500 MG] 500 mg PO BIDWM Gabapentin [Neurontin] 800 mg PO TID Additional Instructions: WILL BE DOING A TELEMED APPOINTMENT FOR FOLLOW UP VISIT. OFFICE WILL CALL PATIENT AND SEND HIM A INVITE LINK. Follow up with: BHAVESH LONDON NP [Primary Care Provider] - 01/30/20 10:30 am
[2020-01-24] MEDS ORDERED: TROUGH DRUG LEVELS IJ ONE (09:30)
== END 2020-01-23 11:00 | disposition home or self-care (01) | DRG 690 ==
LOC: ED 09:41 → MED SURG 15:35
PROVIDERS: ADMIT Family Medicine; ATTEND Family Medicine
DX: N39.0 Urinary tract infection, site not specified (principal); B95.62 Methicillin resistant Staphylococcus aureus infection as the cause of diseases classified elsewhere; R50.9 Fever, unspecified; B27.90 Infectious mononucleosis, unspecified without complication; R06.02 Shortness of breath; R10.31 Right lower quadrant pain; R11.10 Vomiting, unspecified; J44.9 Chronic obstructive pulmonary disease, unspecified; M54.5 Low back pain; G89.29 Other chronic pain; R09.02 Hypoxemia; K74.60 Unspecified cirrhosis of liver; R41.0 Disorientation, unspecified; F17.200 Nicotine dependence, unspecified, uncomplicated; Z79.899 Other long term (current) drug therapy
CPT/HCPCS: 36000; 36415; 71045; 71260; 74176; 80053; 80307; 81001; 82150; 82805; 82962; 83605; 83690; 83735; 83880; 84484; 85025; 85379; 85652; 86308; 87040; 87070; 87077; 87086; 87186; 87631; 87651; 93005; 93041; 94640; 94762; 96360; 96365; 96367; 99000; 99285; 99291; J0456; J0696; J1817; J3475; A9270-GY; J3370; U0001

== ENCOUNTER 2020-02-05 18:26 | Emergency (ER) | payer MEDICARE ==
--- NOTE | 2020-02-05 18:31 | ERPHSYRPT ---
- History of Present Illness Time Seen by Provider: 02/05/20 18:29 Source: patient, EMS Exam Limitations: clinical condition, intoxication Physician History: This is a 64-year-old gentleman into the emergency department via EMS. Patient was found on the ground. The episode was not witnessed patient was seen down intoxicated patient is known to have likely. Patient arrives via EMS and is on his extremities and breathing on his own. We are unable to obtain a complete history from him, there is information old chart shows that he has alcoholic cirrhosis, insulin-dependent diabetes. Patient list of medications include buspirone, Neurontin, Lyrica, trazodone, and bupropion. Per EMS, the officer stated that the patient is not charged with any crime. Is here for medical evaluation. Timing/Duration: today Severity: moderate Associated Symptoms: denies symptoms Allergies/Adverse Reactions: codeine Allergy (Unknown, Verified 01/20/20 10:29) Home Medications: Albuterol Sulfate [Proair Hfa] 8.5 gm IH Q4-6HPRN PRN 01/20/20 [History] Buspirone HCl 5 mg [Buspar 5 mg] 10 mg PO DAILY 01/20/20 [History] Gabapentin [Neurontin] 800 mg PO TID 01/20/20 [History] Metformin HCl 500 mg [Glucophage 500 MG] 500 mg PO BIDWM 01/20/20 [History ] Metoprolol Succinate 50 mg [Toprol Xl 50 MG] 50 mg PO DAILY 01/20/20 [ History] Pregabalin [Lyrica 75 mg Cap] 75 mg PO BID 01/20/20 [History] Trazodone HCl 50 mg [Desyrel 50 mg] 100 mg PO QHS 01/20/20 [History] buPROPion HCL [Bupropion HCl Sr] 150 mg PO DAILY 01/20/20 [History] risperiDONE [Risperidone] 1 mg PO QHS 01/20/20 [History] Hx Tetanus, Diphtheria Vaccination/Date Given: No Hx Influenza Vaccination/Date Given: Yes Hx Pneumococcal Vaccination/Date Given: Yes Travel Risk - International Travel Have you traveled outside of the country in past 3 weeks: No Have you or anyone close to you been diagnosed with or: No Do your reside in a community with a known COVID-19 case?: Yes If Yes where:: [facility] - Coronavirus Screening Has patient experienced Coronavirus symptoms: No - Review of Systems Constitutional: No Symptoms Eyes: No Symptoms Ears, Nose, & Throat: No Symptoms Respiratory: No Symptoms Cardiac: No Symptoms Abdominal/Gastrointestinal: No Symptoms Genitourinary Symptoms: No Symptoms Musculoskeletal: No Symptoms Skin: No Symptoms Neurological: Other (Intoxicated unable to answer questions appropriately.) Psychological: Alcohol Abuse Endocrine: No Symptoms Hematologic/Lymphatic: No Symptoms Immunological/Allergic: No Symptoms All Other Systems: Reviewed and Negative - Past Medical History Pertinent Past Medical History: Yes Neurological History: No Pertinent History ENT History: No Pertinent History Cardiac History: No Pertinent History Respiratory History: Asthma, COPD Endocrine Medical History: No Pertinent History Musculoskeletal History: No Pertinent History GI Medical History: No Pertinent History History: Other Psycho-Social History: Depression Male Reproductive Disorders: No Pertinent History Other Medical History: freq UTI, back pain, R knee "stiff, nerves" - Past Surgical History Past Surgical History: No Musculoskeletal: Orthopedic Surgery Other Surgical History: R knee - Social History Smoking Status: Current every day smoker How long have you smoked: 50 yrs Drug Use: none - Nursing Vital Signs Nursing Vital Signs: Initial Vital Signs Temperature 97.2 F 02/05/20 18:26 Pulse Rate 91 H 02/05/20 18:26 Respiratory Rate 18 02/05/20 18:26 Blood Pressure 155/101 02/05/20 18:26 O2 Sat by Pulse Oximetry 95 02/05/20 18:26 Pain Scale Pain Intensity 5 - Physical Exam General Appearance: lethargy, other (Intoxicated) Eye Exam: PERRL/EOMI, eyes nml inspection Ears, Nose, Throat Exam: normal ENT inspection, dry mucous membranes Neck Exam: normal inspection, non-tender, supple, full range of motion Respiratory Exam: normal breath sounds, lungs clear, No chest tenderness, No respiratory distress, No airway intact Cardiovascular Exam: regular rate/rhythm, normal heart sounds, normal peripheral pulses Gastrointestinal/Abdomen Exam: soft, normal bowel sounds, No tenderness, No guarding Rectal Exam: not done Back Exam: normal inspection, normal range of motion, No CVA tenderness Extremity Exam: normal inspection, normal range of motion, pelvis stable Neurologic Exam: disoriented, confusion, agitation, intoxicated appearance Skin Exam: normal color, warm, dry Lymphatic Exam: No adenopathy SpO2 Interpretation: borderline oxygenation O2 Delivery: Room Air - Course Nursing assessment & vital signs reviewed: Yes EKG Interpreted by Me: RATE (87), Sinus Rhythm, NORMAL AXIS, NORMAL INTERVALS, NORMAL QRS, Other (No comparison EKG present) Ordered Tests: Active Orders 24 hr Category Date Time Status ACCUCHECK [Accucheck] STAT Care 02/05/20 18:34 Active Broadcast Designer STAT Care 02/05/20 18:31 Active Catheter-Nelson Jenkins STAT Care 02/05/20 18:30 Active EKG-ER Only STAT Care 02/05/20 18:30 Active IV Insertion STAT Care 02/05/20 18:30 Active Pulse Oximetry (ED) STAT Care 02/05/20 18:30 Active HEAD WITHOUT CONTRAST [CT] Stat Exams 02/05/20 18:31 Taken ACETAMINOPHEN Stat Lab 02/05/20 18:50 Completed CBC W DIFF Stat Lab 02/05/20 18:50 Completed CMP Stat Lab 02/05/20 18:50 Completed CULTURE,URINE Stat Lab 02/05/20 18:50 Received ETHYL ALCOHOL Stat Lab 02/05/20 18:50 Completed SALICYLATE Stat Lab 02/05/20 18:50 Completed TROPONIN Q3H Lab 02/05/20 18:50 Completed TROPONIN Q3H Lab 02/05/20 23:00 Ordered UA W/RFX UR CULTURE Stat Lab 02/05/20 18:50 Completed Urine Triage Profile Stat Lab 02/05/20 18:50 Completed Medication Summary Discontinued Medications Generic Name Dose Route Start Last Admin Trade Name Freq PRN Reason Stop Dose Admin Acetaminophen 650 mg 02/05/20 20:25 02/05/20 20:29 Tylenol 325 Mg PO 02/05/20 20:26 650 mg STAT STA Administration Acetaminophen Confirm 02/05/20 20:28 Tylenol 325 Mg Administered 02/05/20 20:29 Dose 650 mg .ROUTE .STK-MED ONE Famotidine 40 mg 02/05/20 20:01 02/05/20 20:27 Pepcid 20 Mg Vial IV 02/05/20 20:02 40 mg STAT ONE Administration Famotidine Confirm 02/05/20 20:14 Pepcid 20 Mg Vial Administered 02/05/20 20:15 Dose 40 mg IV .STK-MED ONE Sodium Chloride 1,000 mls @ 999 mls/hr 02/05/20 18:30 02/05/20 18:40 Sodium Chloride 0.9% 1000 Ml IV 02/05/20 19:30 999 mls/hr .Q1H1M STA Administration Sodium Chloride Confirm 02/05/20 18:38 Sodium Chloride 0.9% 1000 Ml Administered 02/05/20 18:39 Dose 1,000 mls @ ud .ROUTE .STK-MED ONE Ceftriaxone Sodium/Dextrose 1 g in 50 mls @ 100 mls/hr 02/05/20 19:15 20:34 Rocephin 1 Gm-D5w 50 Ml Bag IV 02/05/20 19:44 100 mls/hr STAT STA Infusion Ceftriaxone Sodium/Dextrose Confirm 02/05/20 19:17 Rocephin 1 Gm-D5w 50 Ml Bag Administered 02/05/20 19:18 Dose 1 g in 50 mls @ ud IV .STK-MED ONE Ondansetron HCl 4 mg 02/05/20 18:30 02/05/20 18:39 Zofran 4 Mg/2 Ml Vial IV 02/05/20 18:31 4 mg STAT ONE Administration Ondansetron HCl Confirm 02/05/20 18:38 Zofran 4 Mg/2 Ml Vial Administered 02/05/20 18:39 Dose 4 mg .ROUTE .STK-MED ONE Lab/Rad Data: Laboratory Result Diagrams 02/05/20 18:50 02/05/20 18:50 Laboratory Results 02/05/20 02/05/20 02/05/20 Range/Units 18:50 18:50 18:50 WBC (4.0-10.5) K/mm3 RBC (4.1-5.6) M/mm3 Hgb (12.5-18.0) gm/dl Hct (42-50) % MCV (78-100) fl MCH (26-32) pg MCHC (32-36) g/dl RDW (11.5-14.0) % Plt Count (150-450) K/mm3 MPV (7.5-11.0) fl Gran % (36.0-66.0) % Eos # (Auto) (0-0.5) Absolute Lymphs (auto) (1.0-4.6) Absolute Monos (auto) (0.0-1.3) Lymphocytes % (24.0-44.0) % Monocytes % (0.0-12.0) % Eosinophils % (0.00-5.0) % Basophils % (0.0-0.4) % Absolute Granulocytes (1.4-6.9) Basophils # (0-0.4) Sodium (137-145) mmol/L Potassium (3.5-5.1) mmol/L Chloride (98-107) mmol/L Carbon Dioxide (22-30) mmol/L Anion Gap (5-15) MEQ/L BUN (9-20) mg/dL Creatinine (0.66-1.25) mg/dL Estimated GFR ML/MIN Glucose (74-106) mg/dL Calcium (8.4-10.2) mg/dL Total Bilirubin (0.2-1.3) mg/dL AST (17-59) U/L ALT (0-50) U/L Alkaline Phosphatase (38-126) U/L Troponin I < 0.012 (0.000-0.034) ng/mL Serum Total Protein (6.3-8.2) g/dL Albumin (3.5-5.0) g/dL Urine Color YELLOW (YELLOW) Urine Appearance CLOUDY (CLEAR) Urine pH 5.0 (5-6) Ur Specific [place] 1.009 (1.005-1.025) Urine Protein 30 (Negative) Urine Ketones NEGATIVE (NEGATIVE) Urine Blood MODERATE (0-5) Randy/ul Urine Nitrite POSITIVE (NEGATIVE) Urine Bilirubin NEGATIVE (NEGATIVE) Urine Urobilinogen NEGATIVE (0-1) mg/dL Ur Leukocyte Esterase LARGE (NEGATIVE) Urine WBC (Auto) >100 (0-5) /HPF Urine RBC (Auto) 11-15 (0-2) /HPF U Epithel Cells (Auto) NONE (FEW) /HPF Urine Bacteria (Auto) MODERATE (NEGATIVE) /HPF Urine Mucus (Auto) SLIGHT (NEGATIVE) /HPF Urine Culture Reflexed ORDERED SEPARATELY (NO) Urine Glucose NEGATIVE (NEGATIVE) mg/dL Salicylates (2-20) mg/dL Urine Opiates Level NEGATIVE (NEGATIVE) Ur Methadone NEGATIVE (NEGATIVE) Acetaminophen (10-30) ug/ml Urine Barbiturates NEGATIVE (NEGATIVE) Ur Phencyclidine (PCP) NEGATIVE (NEGATIVE) Urine Amphetamine NEGATIVE (NEGATIVE) U Benzodiazepine Level NEGATIVE (NEGATIVE) Urine Cocaine NEGATIVE (NEGATIVE) Urine Marijuana (THC) NEGATIVE (NEGATIVE) Ethyl Alcohol (0-10) mg/dL 02/05/20 02/05/20 Range/Units 18:50 18:50 WBC 6.0 (4.0-10.5) K/mm3 RBC 5.67 H (4.1-5.6) M/mm3 Hgb 17.0 (12.5-18.0) gm/dl Hct 49.5 (42-50) % MCV 87.3 (78-100) fl MCH 30.0 (26-32) pg MCHC 34.3 (32-36) g/dl RDW 14.7 H (11.5-14.0) % Plt Count 130 L (150-450) K/mm3 MPV 11.8 H (7.5-11.0) fl Gran % 60.5 (36.0-66.0) % Eos # (Auto) 0.13 (0-0.5) Absolute Lymphs (auto) 1.84 (1.0-4.6) Absolute Monos (auto) 0.37 (0.0-1.3) Lymphocytes % 30.6 (24.0-44.0) % Monocytes % 6.2 (0.0-12.0) % Eosinophils % 2.2 (0.00-5.0) % Basophils % 0.5 (0.0-0.4) % Absolute Granulocytes 3.64 (1.4-6.9) Basophils # 0.03 (0-0.4) Sodium 144 (137-145) mmol/L Potassium 3.5 (3.5-5.1) mmol/L Chloride 107 (98-107) mmol/L Carbon Dioxide 23 (22-30) mmol/L Anion Gap 17.9 H (5-15) MEQ/L BUN 9 (9-20) mg/dL Creatinine 0.71 (0.66-1.25) mg/dL Estimated GFR > 60.0 ML/MIN Glucose 288 H (74-106) mg/dL Calcium 9.0 (8.4-10.2) mg/dL Total Bilirubin 1.20 (0.2-1.3) mg/dL AST 43 (17-59) U/L ALT 29 (0-50) U/L Alkaline Phosphatase 126 (38-126) U/L Troponin I (0.000-0.034) ng/mL Serum Total Protein 9.0 H (6.3-8.2) g/dL Albumin 4.3 (3.5-5.0) g/dL Urine Color (YELLOW) Urine Appearance (CLEAR) Urine pH (5-6) Ur Specific [place] (1.005-1.025) Urine Protein (Negative) Urine Ketones (NEGATIVE) Urine Blood (0-5) Randy/ul Urine Nitrite (NEGATIVE) Urine Bilirubin (NEGATIVE) Urine Urobilinogen (0-1) mg/dL Ur Leukocyte Esterase (NEGATIVE) Urine WBC (Auto) (0-5) /HPF Urine RBC (Auto) (0-2) /HPF U Epithel Cells (Auto) (FEW) /HPF Urine Bacteria (Auto) (NEGATIVE) /HPF Urine Mucus (Auto) (NEGATIVE) /HPF Urine Culture Reflexed (NO) Urine Glucose (NEGATIVE) mg/dL Salicylates < 1.0 L (2-20) mg/dL Urine Opiates Level (NEGATIVE) Ur Methadone (NEGATIVE) Acetaminophen < 10 L (10-30) ug/ml Urine Barbiturates (NEGATIVE) Ur Phencyclidine (PCP) (NEGATIVE) Urine Amphetamine (NEGATIVE) U Benzodiazepine Level (NEGATIVE) Urine Cocaine (NEGATIVE) Urine Marijuana (THC) (NEGATIVE) Ethyl Alcohol 249 H (0-10) mg/dL - Progress Progress Note: 02/05/20 18:50 Patient is now agitated. We will contact the police to have them available in the event he becomes more aggressive. 02/05/20 19:48 CAT scan of the head reveals no acute intracranial process. There is evidence of an old orbital fracture. In addition there is evidence of old left lacunar infarct. - Departure Departure Disposition: Home Clinical Impression: Alcohol intoxication, Urinary tract infection, Hyperglycemia Condition: Stable Critical Care Time: No Referrals: BHAVESH LONDON NP [Primary Care Provider] - Additional Instructions: Avoid alcohol ingestion. Take your medication as prescribed. Follow-up with a primary care physician for further management. Prescriptions: Smz/Tmp Ds Tablet [Bactrim Ds Tablet] 1 udtab PO BID #14 tablet
[2020-02-05] MEDS ORDERED: Sodium Chloride 0.9% 1000 ML 1,000 ML ONE (18:38)
[2020-02-05] MEDS ORDERED: Zofran 4 MG/2 ML VIAL ONE (18:38)
[2020-02-05] MEDS: Zofran 4 MG/2 ML VIAL IV ONE (18:39)
[2020-02-05] MEDS: Sodium Chloride 0.9% 1000 ML 1,000 ML IV STA (18:40)
[2020-02-05 18:54] LABS: Absolute Neutrophil Ct (ANC) 3.64 (1.4-6.9); BASOPHIL % 0.5 % (0.0-0.4); Basophil (Absolute #) 0.03 (0-0.4); Eosinophil % 2.2 % (0.00-5.0); Eosinophil (Absolute #) 0.13 (0-0.5); Hematocrit 49.5 % (42-50); Lymphocyte (Absolute #) 1.84 (1.0-4.6); Lymphocytes % 30.6 % (24.0-44.0); Mean Cell Volume 87.3 fl (78-100); Mean Corpuscular Hgb Concent. 34.3 g/dl (32-36); Mean Platelet Volume 11.8 fl (7.5-11.0); Monocyte (Absolute #) 0.37 (0.0-1.3); Monocytes % 6.2 % (0.0-12.0); Neutrophil % 60.5 % (36.0-66.0); Platelet Count 130 K/mm3 (150-450); Red Blood Count 5.67 M/mm3 (4.1-5.6); Red Cell Distribution Width 14.7 % (11.5-14.0)
[2020-02-05 19:07] LABS: ALBUMIN 4.3 g/dL (3.5-5.0); ALKALINE PHOSPHATASE 126 U/L (38-126); ANION GAP 17.9 MEQ/L (5-15); BLOOD UREA NITROGEN 9 mg/dL (9-20); CHLORIDE 107 mmol/L (98-107); Carbon Dioxide 23 mmol/L (22-30); Creatinine 1 0.71 mg/dL (0.66-1.25); ETHYL ALCOHOL 249 mg/dL (0-10); Glucose 288 mg/dL (74-106); Potassium 3.5 mmol/L (3.5-5.1); SGOT/AST 43 U/L (17-59); SGPT/ALT 29 U/L (0-50); SODIUM 144 mmol/L (137-145)
[2020-02-05 19:10] LABS: Appearance CLOUDY (CLEAR); Bacteria MODERATE /HPF (NEGATIVE); Bilirubin NEGATIVE (NEGATIVE); Blood MODERATE Ery/ul (0-5); Glucose NEGATIVE (NEGATIVE); Ketones NEGATIVE (NEGATIVE); Leukocyte Esterase LARGE (NEGATIVE); Mucus SLIGHT /HPF (NEGATIVE); Nitrite POSITIVE (NEGATIVE); Protein,Urine Dip 30 (Negative); Specific Gravity 1.009 (1.005-1.025); Urobilinogen NEGATIVE mg/dL (0-1); WBC >100 /HPF (0-5)
[2020-02-05 19:12] LABS: ACETAMINOPHEN < 10 ug/ml (10-30); SALICYLATE < 1.0 mg/dL (2-20)
[2020-02-05] MEDS ORDERED: ROCEPHIN 1 Gm-D5w 50 ml Bag** 1 G/50 ML IVPB IV ONE (19:17)
[2020-02-05 19:18] LABS: Amphetamine,Urine NEGATIVE (NEGATIVE); Barbiturate,Urine NEGATIVE (NEGATIVE); Benzodiazepine,Urine NEGATIVE (NEGATIVE); Cocaine,Urine NEGATIVE (NEGATIVE); Methadone,Urine NEGATIVE (NEGATIVE); Opiate,Urine NEGATIVE (NEGATIVE); PCP,Urine NEGATIVE (NEGATIVE); THC,Urine NEGATIVE (NEGATIVE)
[2020-02-05] MEDS: ROCEPHIN 1 Gm-D5w 50 ml Bag** 1 G/50 ML IVPB IV STA (19:20)
[2020-02-05] MEDS ORDERED: Pepcid 20 MG VIAL IV ONE (20:14)
[2020-02-05] MEDS: Pepcid 20 MG VIAL IV ONE (20:27)
[2020-02-05] MEDS ORDERED: TYLENOL 325 MG ONE (20:28)
[2020-02-05] MEDS: TYLENOL 325 MG PO STA (20:29)
--- NOTE | 2020-02-06 08:15 | XRAY ---
Indication: Acute mental status change. Found on ground. Alcohol. Multiple contiguous axial images obtained through the head without contrast. Comparison: None Study slightly degraded by minimal motion artifact. Age-appropriate global atrophy and mild periventricular degenerative micro-ischemia bilaterally. Old left basal ganglia lacunar infarct. No acute intracranial hemorrhage, abnormal extra-axial fluid collection, or mass effect. Fourth ventricle is midline without hydrocephalus. Bony calvarium intact. Visualized paranasal sinuses and mastoid air cells are clear. Impression: Nonacute senile brain with old left basal ganglia lacunar infarct.
[2020-02-06 08:56] VITALS: BP 157/85; PULSE 86; O2SAT 97
== END 2020-02-06 09:11 | disposition home or self-care (01) ==
LOC: ED 18:26
DX: F10.129 Alcohol abuse with intoxication, unspecified (principal); N39.0 Urinary tract infection, site not specified; E11.65 Type 2 diabetes mellitus with hyperglycemia; Z79.4 Long term (current) use of insulin; K70.30 Alcoholic cirrhosis of liver without ascites; Z79.899 Other long term (current) drug therapy; J44.9 Chronic obstructive pulmonary disease, unspecified; J45.909 Unspecified asthma, uncomplicated; Z72.0 Tobacco use
CPT/HCPCS: 36000; 36415; 51702; 70450; 80053; 80307; 81001; 82962; 84484; 85025; 87086; 93005; 93041; 94760; 96360; 96365; 96374; 96375; G0480; G0481; 99285; J0696; J2405; A9270-GY

== ENCOUNTER 2020-02-28 12:29 | Emergency (ER) | payer MEDICARE ==
--- NOTE | 2020-02-28 12:39 | ERPHSYRPT ---
- History of Present Illness Time Seen by Provider: 02/28/20 12:39 Source: patient Exam Limitations: no limitations Physician History: Is a 64-year-old alcoholic male who presents to the emergency department with primary complaint of fatigue and muscle aches. Patient was seen here on 2019 for acute alcohol intoxication. He was sent home then sent to [place] for alcohol rehabilitation. While in [place] he was having complaints of fatigue and muscle aches. He was sent to the emergency department in [place]. He left AMA from 1 hospital and then was admitted to another hospital where he underwent COVID testing twice which both ended up being negative. He was found to have abnormally low white blood cell count platelet counts and hemoglobin levels. He was told he had a pneumonia as well. Patient has taken antibiotics for this diagnosis in the recent past. Patient has a history of alcoholic cirrhosis. Patient is taking buspirone, Neurontin, Lyrica and trazodone. Denies shortness of breath, he denies cough, he denies fever, he denies chest pain, he denies abdominal pain. He has had no nausea vomiting or diarrhea. Timing/Duration: week(s) (A few weeks) Severity: moderate Associated Symptoms: headaches, malaise, weakness Allergies/Adverse Reactions: codeine Allergy (Unknown, Verified 01/20/20 10:29) Home Medications: Albuterol Sulfate [Proair Hfa] 8.5 gm IH Q4-6HPRN PRN 01/20/20 [History] Buspirone HCl 5 mg [Buspar 5 mg] 10 mg PO DAILY 01/20/20 [History] Gabapentin [Neurontin] 800 mg PO TID 01/20/20 [History] Metformin HCl 500 mg [Glucophage 500 MG] 500 mg PO BIDWM 01/20/20 [History ] Metoprolol Succinate 50 mg [Toprol Xl 50 MG] 50 mg PO DAILY 01/20/20 [ History] Pregabalin [Lyrica 75 mg Cap] 75 mg PO BID 01/20/20 [History] Trazodone HCl 50 mg [Desyrel 50 mg] 100 mg PO QHS 01/20/20 [History] buPROPion HCL [Bupropion HCl Sr] 150 mg PO DAILY 01/20/20 [History] risperiDONE [Risperidone] 1 mg PO QHS 01/20/20 [History] Hx Tetanus, Diphtheria Vaccination/Date Given: No Hx Influenza Vaccination/Date Given: Yes Hx Pneumococcal Vaccination/Date Given: Yes Travel Risk - International Travel Have you traveled outside of the country in past 3 weeks: No Have you or anyone close to you been diagnosed with or: No Do your reside in a community with a known COVID-19 case?: Yes If Yes where:: Co. - Coronavirus Screening Symptoms experienced: muscle pain, weakness, severe headache - Review of Systems Constitutional: Malaise, Weakness Eyes: No Symptoms Ears, Nose, & Throat: No Symptoms Respiratory: No Symptoms Cardiac: No Symptoms Abdominal/Gastrointestinal: No Symptoms Genitourinary Symptoms: No Symptoms Musculoskeletal: Arthralgias, Myalgias Skin: No Symptoms Neurological: No Symptoms Psychological: No Symptoms Endocrine: No Symptoms Hematologic/Lymphatic: No Symptoms Immunological/Allergic: No Symptoms All Other Systems: Reviewed and Negative - Past Medical History Pertinent Past Medical History: Yes Neurological History: No Pertinent History ENT History: No Pertinent History Cardiac History: No Pertinent History Respiratory History: Asthma, COPD Endocrine Medical History: No Pertinent History Musculoskeletal History: No Pertinent History GI Medical History: No Pertinent History History: Other Psycho-Social History: Depression Male Reproductive Disorders: No Pertinent History Other Medical History: freq UTI, back pain, R knee "stiff, nerves" - Past Surgical History Past Surgical History: No Neuro Surgical History: No Pertinent History Cardiac: No Pertinent History Respiratory: No Pertinent History Gastrointestinal: No Pertinent History Genitourinary: No Pertinent History Musculoskeletal: Orthopedic Surgery Male Surgical History: No Pertinent History Other Surgical History: R knee - Social History Smoking Status: Current every day smoker How long have you smoked: 50 yrs Drug Use: none - Nursing Vital Signs Nursing Vital Signs: Initial Vital Signs Temperature 98.0 F 02/28/20 12:45 Pulse Rate 65 02/28/20 12:45 Blood Pressure 169/92 02/28/20 12:45 O2 Sat by Pulse Oximetry 97 02/28/20 12:45 Pain Scale Pain Intensity 8 - Physical Exam General Appearance: no apparent distress, alert, anxiety, thin Eye Exam: PERRL/EOMI, eyes nml inspection Ears, Nose, Throat Exam: normal ENT inspection, moist mucous membranes Neck Exam: normal inspection Respiratory Exam: normal breath sounds, lungs clear, airway intact, No chest tenderness, No respiratory distress Cardiovascular Exam: regular rate/rhythm, normal heart sounds, normal peripheral pulses Gastrointestinal/Abdomen Exam: soft, normal bowel sounds, No tenderness Rectal Exam: not done Back Exam: normal inspection, normal range of motion, No CVA tenderness, No vertebral tenderness Extremity Exam: normal inspection, normal range of motion, pelvis stable Neurologic Exam: alert, oriented x 3, cooperative, landfill attendant II-XII nml as tested, normal mood/affect, nml cerebellar function, nml station & gait Skin Exam: normal color, warm, dry Lymphatic Exam: No adenopathy SpO2 Interpretation: normal O2 Delivery: Room Air - Course Nursing assessment & vital signs reviewed: Yes EKG Interpreted by Me: RATE (62), Sinus Rhythm, NORMAL AXIS, NORMAL INTERVALS, NORMAL QRS, Other (Comparison EKG dated 01/20/2020 reveals resolution of a first- degree AV block. There is no evidence of any acute ischemic findings on today' s EKG) Ordered Tests: Active Orders 24 hr Category Date Time Status Social Sciences Research Scientist STAT Care 02/28/20 13:04 Active EKG-ER Only STAT Care 02/28/20 13:02 Active IV Insertion STAT Care 02/28/20 13:02 Active Isolation, Initiate & Maintain Q4H Care 02/28/20 13:06 Active Pulse Oximetry (ED) STAT Care 02/28/20 13:05 Active AMYLASE Stat Lab 02/28/20 13:00 Completed BLOOD CULTURE Stat Lab 02/28/20 13:10 Received CBC W DIFF Stat Lab 02/28/20 13:00 Completed CMP Stat Lab 02/28/20 13:00 Completed LIPASE Stat Lab 02/28/20 13:00 Completed Lactic Acid Stat Lab 02/28/20 13:07 Completed MAGNESIUM Stat Lab 02/28/20 13:00 Completed [place] Screen Stat Lab 02/28/20 13:00 Completed NT PRO BNP Stat Lab 02/28/20 12:30 Received TROPONIN Q3H Lab 02/28/20 13:00 Received TROPONIN Q3H Lab 02/28/20 16:15 Ordered TROPONIN Q3H Lab 02/28/20 19:15 Ordered TROPONIN Q3H Lab 02/28/20 22:15 Ordered TROPONIN Q3H Lab 02/29/20 01:15 Ordered UA W/RFX UR CULTURE Stat Lab 02/28/20 13:00 Completed Urine Triage Profile Stat Lab 02/28/20 13:00 Completed Medication Summary Discontinued Medications Generic Name Dose Route Start Last Admin Trade Name Radha PRN Reason Stop Dose Admin Sodium Chloride 1,000 mls @ 999 mls/hr 02/28/20 13:02 02/28/20 14:15 Sodium Chloride 0.9% 1000 Ml IV 02/28/20 14:02 Infused .Q1H1M STA Infusion Sodium Chloride Confirm 02/28/20 13:12 Sodium Chloride 0.9% 1000 Ml Administered 02/28/20 13:13 Dose 1,000 mls @ ud .ROUTE .STK-MED ONE Lab/Rad Data: Laboratory Result Diagrams 02/28/20 13:00 02/28/20 13:00 Laboratory Results 02/28/20 02/28/20 02/28/20 Range/Units 13:07 13:00 13:00 WBC (4.0-10.5) K/mm3 RBC (4.1-5.6) M/mm3 Hgb (12.5-18.0) gm/dl Hct (42-50) % MCV (78-100) fl MCH (26-32) pg MCHC (32-36) g/dl RDW (11.5-14.0) % Plt Count (150-450) K/mm3 MPV (7.5-11.0) fl Gran % (36.0-66.0) % Eos # (Auto) (0-0.5) Absolute Lymphs (auto) (1.0-4.6) Absolute Monos (auto) (0.0-1.3) Lymphocytes % (24.0-44.0) % Monocytes % (0.0-12.0) % Eosinophils % (0.00-5.0) % Basophils % (0.0-0.4) % Absolute Granulocytes (1.4-6.9) Basophils # (0-0.4) Sodium (137-145) mmol/L Potassium (3.5-5.1) mmol/L Chloride (98-107) mmol/L Carbon Dioxide (22-30) mmol/L Anion Gap (5-15) MEQ/L BUN (9-20) mg/dL Creatinine (0.66-1.25) mg/dL Estimated GFR ML/MIN Glucose (74-106) mg/dL Lactic Acid 1.1 (0.4-2.0) Calcium (8.4-10.2) mg/dL Magnesium (1.6-2.3) mg/dL Total Bilirubin (0.2-1.3) mg/dL AST (17-59) U/L ALT (0-50) U/L Alkaline Phosphatase (38-126) U/L NT-Pro-B Natriuret Pep Serum Total Protein (6.3-8.2) g/dL Albumin (3.5-5.0) g/dL Amylase (30-110) U/L Lipase (23-300) U/L Urine Color YELLOW (YELLOW) Urine Appearance CLEAR (CLEAR) Urine pH 7.0 (5-6) Ur Specific [place] 1.010 (1.005-1.025) Urine Protein NEGATIVE (Negative) Urine Ketones NEGATIVE (NEGATIVE) Urine Blood NEGATIVE (0-5) Randy/ul Urine Nitrite NEGATIVE (NEGATIVE) Urine Bilirubin NEGATIVE (NEGATIVE) Urine Urobilinogen NEGATIVE (0-1) mg/dL Ur Leukocyte Esterase TRACE (NEGATIVE) Urine WBC (Auto) 0-2 (0-5) /HPF Urine RBC (Auto) 0-2 (0-2) /HPF U Epithel Cells (Auto) NONE (FEW) /HPF Urine Bacteria (Auto) NONE (NEGATIVE) /HPF Urine Mucus (Auto) SLIGHT (NEGATIVE) /HPF Urine Culture Reflexed NO (NO) Urine Glucose 50 (NEGATIVE) mg/dL Urine Opiates Level POSITIVE (NEGATIVE) Ur Methadone NEGATIVE (NEGATIVE) Urine Barbiturates NEGATIVE (NEGATIVE) Ur Phencyclidine (PCP) NEGATIVE (NEGATIVE) Urine Amphetamine NEGATIVE (NEGATIVE) U Benzodiazepine Level NEGATIVE (NEGATIVE) Urine Cocaine POSITIVE (NEGATIVE) Urine Marijuana (THC) NEGATIVE (NEGATIVE) Monoscreen (Negative) Influenza Type A Ag (NEGATIVE) Influenza Type B Ag (NEGATIVE) RSV (PCR) (Negative) Slides for Path Review 02/28/20 02/28/20 02/28/20 Range/Units 13:00 13:00 13:00 WBC (4.0-10.5) K/mm3 RBC (4.1-5.6) M/mm3 Hgb (12.5-18.0) gm/dl Hct (42-50) % MCV (78-100) fl MCH (26-32) pg MCHC (32-36) g/dl RDW (11.5-14.0) % Plt Count (150-450) K/mm3 MPV (7.5-11.0) fl Gran % (36.0-66.0) % Eos # (Auto) (0-0.5) Absolute Lymphs (auto) (1.0-4.6) Absolute Monos (auto) (0.0-1.3) Lymphocytes % (24.0-44.0) % Monocytes % (0.0-12.0) % Eosinophils % (0.00-5.0) % Basophils % (0.0-0.4) % Absolute Granulocytes (1.4-6.9) Basophils # (0-0.4) Sodium 140 (137-145) mmol/L Potassium 3.8 (3.5-5.1) mmol/L Chloride 101 (98-107) mmol/L Carbon Dioxide 33 H (22-30) mmol/L Anion Gap 10.1 (5-15) MEQ/L BUN 14 (9-20) mg/dL Creatinine 0.74 (0.66-1.25) mg/dL Estimated GFR > 60.0 ML/MIN Glucose 198 H (74-106) mg/dL Lactic Acid (0.4-2.0) Calcium 9.1 (8.4-10.2) mg/dL Magnesium 1.5 L (1.6-2.3) mg/dL Total Bilirubin 0.90 (0.2-1.3) mg/dL AST 51 (17-59) U/L ALT 35 (0-50) U/L Alkaline Phosphatase 107 (38-126) U/L NT-Pro-B Natriuret Pep Cancelled Serum Total Protein 7.8 (6.3-8.2) g/dL Albumin 3.8 (3.5-5.0) g/dL Amylase 50 (30-110) U/L Lipase 114 (23-300) U/L Urine Color (YELLOW) Urine Appearance (CLEAR) Urine pH (5-6) Ur Specific [place] (1.005-1.025) Urine Protein (Negative) Urine Ketones (NEGATIVE) Urine Blood (0-5) Randy/ul Urine Nitrite (NEGATIVE) Urine Bilirubin (NEGATIVE) Urine Urobilinogen (0-1) mg/dL Ur Leukocyte Esterase (NEGATIVE) Urine WBC (Auto) (0-5) /HPF Urine RBC (Auto) (0-2) /HPF U Epithel Cells (Auto) (FEW) /HPF Urine Bacteria (Auto) (NEGATIVE) /HPF Urine Mucus (Auto) (NEGATIVE) /HPF Urine Culture Reflexed (NO) Urine Glucose (NEGATIVE) mg/dL Urine Opiates Level (NEGATIVE) Ur Methadone (NEGATIVE) Urine Barbiturates (NEGATIVE) Ur Phencyclidine (PCP) (NEGATIVE) Urine Amphetamine (NEGATIVE) U Benzodiazepine Level (NEGATIVE) Urine Cocaine (NEGATIVE) Urine Marijuana (THC) (NEGATIVE) Monoscreen POSITIVE (Negative) Influenza Type A Ag NEGATIVE (NEGATIVE) Influenza Type B Ag NEGATIVE (NEGATIVE) RSV (PCR) NEGATIVE (Negative) Slides for Path Review 02/28/20 Range/Units 13:00 WBC 2.0 L (4.0-10.5) K/mm3 RBC 4.57 (4.1-5.6) M/mm3 Hgb 13.8 (12.5-18.0) gm/dl Hct 40.2 L (42-50) % MCV 88.0 (78-100) fl MCH 30.2 (26-32) pg MCHC 34.3 (32-36) g/dl RDW 14.2 H (11.5-14.0) % Plt Count 70 L (150-450) K/mm3 MPV 11.1 H (7.5-11.0) fl Gran % 55.4 (36.0-66.0) % Eos # (Auto) 0.07 (0-0.5) Absolute Lymphs (auto) 0.61 L (1.0-4.6) Absolute Monos (auto) 0.21 (0.0-1.3) Lymphocytes % 29.9 (24.0-44.0) % Monocytes % 10.3 (0.0-12.0) % Eosinophils % 3.4 (0.00-5.0) % Basophils % 1.0 (0.0-0.4) % Absolute Granulocytes 1.13 L (1.4-6.9) Basophils # 0.02 (0-0.4) Sodium (137-145) mmol/L Potassium (3.5-5.1) mmol/L Chloride (98-107) mmol/L Carbon Dioxide (22-30) mmol/L Anion Gap (5-15) MEQ/L BUN (9-20) mg/dL Creatinine (0.66-1.25) mg/dL Estimated GFR ML/MIN Glucose (74-106) mg/dL Lactic Acid (0.4-2.0) Calcium (8.4-10.2) mg/dL Magnesium (1.6-2.3) mg/dL Total Bilirubin (0.2-1.3) mg/dL AST (17-59) U/L ALT (0-50) U/L Alkaline Phosphatase (38-126) U/L NT-Pro-B Natriuret Pep Serum Total Protein (6.3-8.2) g/dL Albumin (3.5-5.0) g/dL Amylase (30-110) U/L Lipase (23-300) U/L Urine Color (YELLOW) Urine Appearance (CLEAR) Urine pH (5-6) Ur Specific [place] (1.005-1.025) Urine Protein (Negative) Urine Ketones (NEGATIVE) Urine Blood (0-5) Randy/ul Urine Nitrite (NEGATIVE) Urine Bilirubin (NEGATIVE) Urine Urobilinogen (0-1) mg/dL Ur Leukocyte Esterase (NEGATIVE) Urine WBC (Auto) (0-5) /HPF Urine RBC (Auto) (0-2) /HPF U Epithel Cells (Auto) (FEW) /HPF Urine Bacteria (Auto) (NEGATIVE) /HPF Urine Mucus (Auto) (NEGATIVE) /HPF Urine Culture Reflexed (NO) Urine Glucose (NEGATIVE) mg/dL Urine Opiates Level (NEGATIVE) Ur Methadone (NEGATIVE) Urine Barbiturates (NEGATIVE) Ur Phencyclidine (PCP) (NEGATIVE) Urine Amphetamine (NEGATIVE) U Benzodiazepine Level (NEGATIVE) Urine Cocaine (NEGATIVE) Urine Marijuana (THC) (NEGATIVE) Monoscreen (Negative) Influenza Type A Ag (NEGATIVE) Influenza Type B Ag (NEGATIVE) RSV (PCR) (Negative) Slides for Path Review - Progress Progress: improved Progress Note: 02/28/20 15:15 I spoke with dairy consultant Dr. Mcgraw. Viewed the patient history, condition, laboratory results. States that the patient does not need to be admitted in the hospital or transferred. He will see the patient on TuesdayMarch 04 at 12 PM noon. The office phone number is [phone]. The [place] is [facility] [address] [place] [facility] entrance second-floor. He stated that this is classic laboratory data 1 would see in somebody with alcoholic cirrhosis and portal hypertension. Ever, he did state that the white count is lower than usual in those conditions. Counseled pt/family regarding: lab results, diagnosis, need for follow-up - Departure Departure Disposition: Home Clinical Impression: Mononucleosis, Leukopenia, Thrombocytopenia concurrent with and due to alcoholism Condition: Stable Critical Care Time: No Referrals: BHAVESH LONDON, NABOR [Primary Care Provider] - Additional Instructions: Drink plenty of fluids. Avoid illicit drug use, avoid alcohol of any kind. Follow up with Dr. Mcgraw, dairy consultant, in his office on Wednesday March 04, 2020 at 12 PM noon. The office phone number is [phone]. [address] [place] [facility] [address] [address]. Use the South entrance and the office is on the second floor.
[2020-02-28] MEDS ORDERED: Sodium Chloride 0.9% 1000 ML 1,000 ML IV STA (13:02)
[2020-02-28] MEDS ORDERED: Sodium Chloride 0.9% 1000 ML 1,000 ML ONE (13:12)
[2020-02-28 13:28] LABS: Appearance CLEAR (CLEAR); Bilirubin NEGATIVE (NEGATIVE); Blood NEGATIVE Ery/ul (0-5); Glucose 50 mg/dL (NEGATIVE); Ketones NEGATIVE (NEGATIVE); Leukocyte Esterase TRACE (NEGATIVE); Mucus SLIGHT /HPF (NEGATIVE); Nitrite NEGATIVE (NEGATIVE); Protein,Urine Dip NEGATIVE (Negative); RBC 0-2 /HPF (0-2); Urobilinogen NEGATIVE mg/dL (0-1); WBC 0-2 /HPF (0-5)
[2020-02-28 13:42] LABS: Amphetamine,Urine NEGATIVE (NEGATIVE); Barbiturate,Urine NEGATIVE (NEGATIVE); Benzodiazepine,Urine NEGATIVE (NEGATIVE); Cocaine,Urine POSITIVE (NEGATIVE); Methadone,Urine NEGATIVE (NEGATIVE); PCP,Urine NEGATIVE (NEGATIVE); THC,Urine NEGATIVE (NEGATIVE)
[2020-02-28 13:50] LABS: ALBUMIN 3.8 g/dL (3.5-5.0); ALKALINE PHOSPHATASE 107 U/L (38-126); AMYLASE 50 U/L (30-110); ANION GAP 10.1 MEQ/L (5-15); BLOOD UREA NITROGEN 14 mg/dL (9-20); CHLORIDE 101 mmol/L (98-107); Calcium 9.1 mg/dL (8.4-10.2); Carbon Dioxide 33 mmol/L (22-30); Creatinine 1 0.74 mg/dL (0.66-1.25); Glucose 198 mg/dL (74-106); LIPASE 114 U/L (23-300); MAGNESIUM 1.5 mg/dL (1.6-2.3); Potassium 3.8 mmol/L (3.5-5.1); SGOT/AST 51 U/L (17-59); SGPT/ALT 35 U/L (0-50); SODIUM 140 mmol/L (137-145); Total Protein 7.8 g/dL (6.3-8.2)
[2020-02-28 14:00] LABS: INFLUENZA A NEGATIVE (NEGATIVE); INFLUENZA B NEGATIVE (NEGATIVE); RESPIRATORY SYNCTIAL VIRUS NEGATIVE (Negative)
[2020-02-28 14:11] LABS: Absolute Neutrophil Ct (ANC) 1.13 (1.4-6.9); Basophil (Absolute #) 0.02 (0-0.4); Eosinophil % 3.4 % (0.00-5.0); Eosinophil (Absolute #) 0.07 (0-0.5); Hematocrit 40.2 % (42-50); Hemoglobin 13.8 gm/dl (12.5-18.0); Lymphocyte (Absolute #) 0.61 (1.0-4.6); Lymphocytes % 29.9 % (24.0-44.0); Mean Corpuscular Hemoglobin 30.2 pg (26-32); Mean Corpuscular Hgb Concent. 34.3 g/dl (32-36); Mean Platelet Volume 11.1 fl (7.5-11.0); Monocyte (Absolute #) 0.21 (0.0-1.3); Monocytes % 10.3 % (0.0-12.0); Neutrophil % 55.4 % (36.0-66.0); Red Blood Count 4.57 M/mm3 (4.1-5.6); Red Cell Distribution Width 14.2 % (11.5-14.0)
[2020-02-28 14:31] LABS: Opiate,Urine POSITIVE (NEGATIVE)
[2020-02-28 14:47] LABS: Platelet Count 70 K/mm3 (150-450)
[2020-02-28 15:40] VITALS: BP 162/97; PULSE 56; O2SAT 96
== END 2020-02-28 15:50 | disposition home or self-care (01) ==
LOC: ED 12:29
DX: B27.90 Infectious mononucleosis, unspecified without complication (principal); D72.819 Decreased white blood cell count, unspecified; K70.30 Alcoholic cirrhosis of liver without ascites; R51 Headache; Z79.899 Other long term (current) drug therapy; J44.9 Chronic obstructive pulmonary disease, unspecified; J45.909 Unspecified asthma, uncomplicated; Z72.0 Tobacco use; F10.20 Alcohol dependence, uncomplicated
CPT/HCPCS: 36000; 36415; 80053; 80307; 81001; 82150; 83605; 83690; 83735; 83880; 84484; 85025; 86308; 87040; 87631; 93005; 93041; 94760; 96360; 99284; U0003